=== PATIENT | female | born 1970 | race Caucasian/White ===

== ENCOUNTER 2016-05-04 11:01 | Emergency (ER) | payer MEDICAID ==
[~2016-05-04] VITALS: Ht 175.3 cm; Wt 130.2 kg
[2016-05-04 11:58] LABS: Basophils # (auto) 0 uL; Basophils % (auto) 0.4 % (0.0-2.0); DEFINITIVE VIEW TRANSMISSION; Eosinophils # (auto) 0.2 uL; Eosinophils % (auto) 2.6 % (0.0-7.0); Hematocrit 42.7 % (36.0-46.0); Hemoglobin 13.6 g/dL (12.2-16.2); Lymphocytes # (auto) 2.4 uL; Lymphocytes % (auto) 28.5 % (10.0-50.0); Mean Corpuscular Hemoglobin 25.6 pg (28.0-32.0); Mean Corpuscular Hgb Conc. 31.9 g/dL (32.0-36.0); Mean Corpuscular Volume 80.5 fL (80.0-100.0); Mean Platelet Volume 8.5 fL (7.4-10.4); Monocytes # (auto) 0.5 uL; Monocytes % (auto) 6.2 % (0.0-12.0); Neutrophils # (auto) 5.3 uL; Neutrophils % (auto) 62.3 % (37.0-80.0); Platelet Count (auto) 332 10^3/uL (140-450); White Blood Cell 8.6 10^3/uL (4.4-10.8)
[2016-05-04 12:09] LABS: Albumin 3.3 g/dL (3.4-5.0); BUN/Creatinine Ratio 23.2; Bilirubin, Total 0.2 mg/dL (0.2-1.0); Calcium 9.3 mg/dL (8.5-10.1); Potassium 3.9 mmol/L (3.5-5.1); Total Protein 8.3 g/dL (6.4-8.2)
[2016-05-04] MEDS ORDERED: HYDROmorphone HCL 2 MG/ML VL IV ONE (13:45)
[2016-05-04] MEDS ORDERED: ONDANSETRON HCL 4 MG/2 ML VIAL IV ONE (13:45)
[2016-05-04 14:02] LABS: Urine RBC None Seen /hpf (0 - 4)
[2016-05-04 14:23] VITALS: BP 145/96
[2016-05-04 14:45] LABS: Urine Bilirubin Negative (Negative); Urine Blood Negative /uL (Negative); Urine Color Yellow (Yellow); Urine Glucose Normal (Normal); Urine Ketone Negative (Negative); Urine Mucus FEW (None Seen); Urine Nitrite Negative (Negative); Urine Squamous Epithelial Cell MANY /hpf (<5); Urine Urobilinogen Normal (Negative); Urine pH 5.5 (5.0-8.0)
== END 2016-05-04 14:32 | disposition left against medical advice (07) ==
LOC: ER 11:10
DX: G89.4 Chronic pain syndrome (principal); E46 Unspecified protein-calorie malnutrition; E66.01 Morbid (severe) obesity due to excess calories; Z68.41 Body mass index [BMI] 40.0-44.9, adult; Z88.9 Allergy status to unspecified drugs, medicaments and biological substances; Z53.29 Procedure and treatment not carried out because of patient's decision for other reasons; Z72.89 Other problems related to lifestyle
CPT/HCPCS: 36415; 80053; 81001; 84702; 85025; 85049; 96374; 96375; 99284; G0434; J1170; J2405

== ENCOUNTER 2016-09-25 00:15 | Emergency (ER) | payer MEDICAID ==
[~2016-09-25] VITALS: Ht 175.3 cm; Wt 131.2 kg
[2016-09-25 01:09] LABS: Basophils # (auto) 0.1 uL; Basophils % (auto) 0.8 % (0.0-2.0); DEFINITIVE VIEW TRANSMISSION; Eosinophils # (auto) 0.3 uL; Eosinophils % (auto) 3.4 % (0.0-7.0); Hematocrit 39.2 % (36.0-46.0); Hemoglobin 12.7 g/dL (12.2-16.2); Lymphocytes # (auto) 2.2 uL; Lymphocytes % (auto) 24.8 % (10.0-50.0); Mean Corpuscular Hemoglobin 26.3 pg (28.0-32.0); Mean Corpuscular Hgb Conc. 32.5 g/dL (32.0-36.0); Mean Corpuscular Volume 81.1 fL (80.0-100.0); Mean Platelet Volume 8.2 fL (7.4-10.4); Monocytes # (auto) 0.7 uL; Monocytes % (auto) 7.7 % (0.0-12.0); Neutrophils # (auto) 5.5 uL; Neutrophils % (auto) 63.3 % (37.0-80.0); Platelet Count (auto) 385 10^3/uL (140-450); Red Cell Distribution Width 14.8 % (11.6-16.0); White Blood Cell 8.8 10^3/uL (4.4-10.8)
[2016-09-25 01:26] LABS: Albumin 2.7 g/dL (3.4-5.0); BUN/Creatinine Ratio 17.6; Calcium 9.3 mg/dL (8.5-10.1); Potassium 3.9 mmol/L (3.5-5.1)
[2016-09-25 01:32] LABS: Bilirubin, Total 0.3 mg/dL (0.2-1.0); Total Protein 8.1 g/dL (6.4-8.2)
[2016-09-25] MEDS ORDERED: NALBUPHINE HCL 10 MG/1ml INJECTION IV ONE (02:45)
[2016-09-25] MEDS ORDERED: SODIUM CHLORIDE 0.9% 1,000 ML IV ONE (02:45)
[2016-09-25] MEDS ORDERED: CLINDAMYCIN 900MG IV 50 ML IV ONE (02:45)
[2016-09-25 03:08] LABS: Allen Test Yes; Base Excess -2.3 mmol/L (-2.0-2.0); Blood 02Sat 95.3 % (96-100); Blood COHb 2.3 % (0.5-1.5); Blood MetHb 0.2 % (0.0-1.5); HCO3 21.3 mmol/L (22-26.0); HHb 4.6 % (0.0-5.0); MODE ROOM AIR; O2Hb 92.9 % (94.0-97.0); PCO2 33.1 mmHg (35.0-45.0); PCO2(T) 33.1 mmHg (35.0-45.0); PO2 83.5 mmHg (80.0-100.0); PO2(T) 83.5 mmHg (80.0-100.0); Sample Type Arterial; pH 7.427 (7.350-7.450)
[2016-09-25] MEDS ORDERED: LORazepam 2MG/ML-1ML VIAL ONE (03:43)
[2016-09-25] MEDS ORDERED: diphenhdrAMINE HCL 50 MG/1 ML VL ONE (03:43)
[2016-09-25] MEDS ORDERED: ONDANSETRON HCL 4 MG/2 ML VIAL ONE (03:43)
[2016-09-25] MEDS ORDERED: LORazepam 2MG/ML-1ML VIAL IV ONE (03:45)
[2016-09-25] MEDS ORDERED: diphenhdrAMINE HCL 50 MG/1 ML VL IV ONE (03:45)
[2016-09-25] MEDS ORDERED: ONDANSETRON HCL 4 MG/2 ML VIAL IV ONE (04:00)
[2016-09-25 05:01] VITALS: BP 133/71
[2016-09-25 05:03] LABS: Urine Bilirubin Negative (Negative); Urine Blood Negative /uL (Negative); Urine Ca Oxalate Crystal MANY (None Seen); Urine Color Yellow (Yellow); Urine Glucose Normal (Normal); Urine Ketone Negative (Negative); Urine Mucus FEW (None Seen); Urine Nitrite Negative (Negative); Urine RBC 6 /hpf (0 - 4); Urine Squamous Epithelial Cell FEW /hpf (<5); Urine pH 5.5 (5.0-8.0)
[2016-09-25 05:17] LABS: REFLEX LACTIC ACID YES OR NO YES
== END 2016-09-25 06:00 | disposition home or self-care (01) ==
LOC: ER 00:17
DX: L03.115 Cellulitis of right lower limb (principal); F12.10 Cannabis abuse, uncomplicated; F15.10 Other stimulant abuse, uncomplicated; F11.10 Opioid abuse, uncomplicated; F17.210 Nicotine dependence, cigarettes, uncomplicated; F19.10 Other psychoactive substance abuse, uncomplicated; E66.01 Morbid (severe) obesity due to excess calories; Z68.41 Body mass index [BMI] 40.0-44.9, adult; Z88.8 Allergy status to other drugs, medicaments and biological substances; Z88.6 Allergy status to analgesic agent; Z59.0 Homelessness
CPT/HCPCS: 36415; 36600; 71010; 80053; 80307; 81001; 82805; 83605; 85025; 87040; 87077; 87186; 87205; 93005; 96365; 96366; 96375; 99285; J1200; J2060; J2300; J2405; J3490

== ENCOUNTER 2018-01-22 11:27 | Emergency (ER) | payer MEDICAID ==
[~2018-01-22] VITALS: Ht 177.8 cm; Wt 120.2 kg
[2018-01-22 12:55] LABS: Urine Bacteria NONE SEEN /hpf (None Seen); Urine Blood Negative /uL (Negative); Urine Mucus FEW (None Seen); Urine Specific Gravity 1.025 (1.001-1.035); Urine WBC 3 /hpf (0 - 5)
[2018-01-22 13:12] LABS: Alcohol, Urine < 3.0 mg/dL (0-5); Amphetamine Screen, Urine POSITIVE (NEGATIVE); Barbiturate Scree,Urine NEGATIVE (NEGATIVE); Benzodiazephine Screen, Urine NEGATIVE (NEGATIVE); Cannabinoid Screen, Urine NEGATIVE (NEGATIVE); Cocaine Screen, Urine NEGATIVE (NEGATIVE); Opiate Scree,Urine POSITIVE (NEGATIVE); Phencyclidine Screen, Urine NEGATIVE (NEGATIVE)
[2018-01-22 13:27] LABS: Basophils # (auto) 0.1 uL; Basophils % (auto) 0.7 % (0.0-2.0); Eosinophils # (auto) 0.2 uL; Eosinophils % (auto) 3.1 % (0.0-7.0); Hematocrit 40.6 % (36.0-46.0); Hemoglobin 13.1 g/dL (12.2-16.2); Lymphocytes # (auto) 2.3 uL; Lymphocytes % (auto) 31.8 % (10.0-50.0); Mean Corpuscular Hemoglobin 27.2 pg (28.0-32.0); Mean Corpuscular Hgb Conc. 32.4 g/dL (32.0-36.0); Mean Corpuscular Volume 84.1 fL (80.0-100.0); Monocytes # (auto) 0.7 uL; Monocytes % (auto) 9.4 % (0.0-12.0); Neutrophils # (auto) 3.9 uL; Nucleated Red Blood Cells % 0.1 %; Platelet Count (auto) 273 10^3/uL (140-450); Red Blood Cells 4.82 10^6/uL (4.0-5.20); Red Cell Distribution Width 16.3 % (11.8-14.3); White Blood Cell 7.1 10^3/uL (4.4-10.8)
[2018-01-22 13:38] VITALS: BP 119/76
[2018-01-22 13:50] LABS: Anion Gap 3 (5-15); Blood Urea Nitrogen 15 mg/dL (7-18); Calcium 8.7 mg/dL (8.5-10.1); Carbon Dioxide 28 mmol/L (21-32); Chloride 104 mmol/L (98-107); Glucose 116 mg/dL (74-106); Magnesium 2.2 mg/dL (1.6-2.6); Potassium 4.1 mmol/L (3.5-5.1); Sodium 135 mmol/L (136-145)
[2018-01-22 13:51] LABS: Alanine Aminotransferase 27 U/L (13-56); Aspartate Aminotransferase 25 U/L (15-37); BUN/Creatinine Ratio 19.7; GFR African American 105 mL/min; GFR Non-African American 87 mL/min
[2018-01-22 13:56] LABS: Alkaline Phosphatase 86 U/L (45-117); Bilirubin, Total 0.1 mg/dL (0.2-1.0); Total Protein 8.3 g/dL (6.4-8.2)
[2018-01-22] MEDS ORDERED: methylPREDNISolone SOD SUCC 125 MG/2 ML VL IV ONE (14:15)
[2018-01-22] MEDS ORDERED: HYDROcodone-ACET 10/325MG TAB PO ONE (15:45)
== END 2018-01-22 15:37 | disposition home or self-care (01) ==
LOC: ER 11:27
DX: F15.10 Other stimulant abuse, uncomplicated (principal); J44.9 Chronic obstructive pulmonary disease, unspecified; F17.210 Nicotine dependence, cigarettes, uncomplicated; Z90.49 Acquired absence of other specified parts of digestive tract; Z90.710 Acquired absence of both cervix and uterus; Z88.6 Allergy status to analgesic agent; Z88.8 Allergy status to other drugs, medicaments and biological substances
CPT/HCPCS: 36415; 80053; 80307; 81001; 83735; 83880; 84484; 85025; 93005; 93970; 94761; 99285; J2930

== ENCOUNTER 2020-11-10 11:42 | Inpatient (IN) | payer MEDICAID ==
[~2020-11-10] VITALS: Ht 167.6 cm; Wt 147.6 kg
[2020-11-10] MEDS ORDERED: SODIUM CHLORIDE 0.9% 1,000 ML IV ONE ×3 (12:00→16:45)
[2020-11-10] MEDS ORDERED: NALOXONE HCL 1MG/ML 2ML SYRINGE IV ONE (12:30)
[2020-11-10] MEDS ORDERED: ACETAMINOPHEN 500 MG TAB PO ONE (13:15)
[2020-11-10 14:17] LABS: Basophils # (auto) 0.1 10 ^3/uL (0-0.2); Basophils % (auto) 0.4 % (0.0-2.0); Eosinophils # (auto) 0 10 ^3/uL (0-0.8); Eosinophils % (auto) 0.1 % (0.0-7.0); Monocytes # (auto) 0.9 10 ^3/uL (0-1.3); Red Cell Distribution Width 17.7 % (11.8-14.3)
[2020-11-10 14:18] LABS: Hematocrit 34.8 % (36.0-46.0); Hemoglobin 11.3 g/dL (12.2-16.2); Lymphocytes # (auto) 0.8 10 ^3/uL (0.4-5.4); Mean Corpuscular Hgb Conc. 32.5 g/dL (32.0-36.0); Monocytes % (auto) 5.7 % (0.0-12.0); Neutrophils # (auto) 14.3 10 ^3/uL (1.6-8.6); Neutrophils % (auto) 88.8 % (37.0-80.0); Nucleated Red Blood Cells % 0.1 %; Red Blood Cells 4.52 10^6/uL (4.0-5.20); White Blood Cell 16.1 10^3/uL (4.4-10.8)
[2020-11-10 14:35] LABS: Alanine Aminotransferase 12 U/L (13-56); Albumin 2.6 g/dL (3.4-5.0); Anion Gap 5 (5-15); Aspartate Aminotransferase 14 U/L (15-37); Blood Urea Nitrogen 11 mg/dL (7-18); Calcium 8.4 mg/dL (8.5-10.1); Carbon Dioxide 25 mmol/L (21-32); Chloride 107 mmol/L (98-107); GFR African American 83 mL/min; GFR Non-African American 69 mL/min; Glucose 136 mg/dL (74-106); Potassium 3.4 mmol/L (3.5-5.1); Sodium 137 mmol/L (136-145)
[2020-11-10 14:38] LABS: Lactic Acid w/Reflex 2.7 mmol/L (0.4-2.0)
[2020-11-10 14:40] LABS: Alkaline Phosphatase 84 U/L (45-117); Bilirubin, Total 0.5 mg/dL (0.2-1.0); Total Protein 7.9 g/dL (6.4-8.2)
[2020-11-10] MEDS ORDERED: cefTRIAXone 1GM/50ML D5W 50 ML IV ONE (14:45)
[2020-11-10 15:26] LABS: Urine Amorphous Crystal FEW /hpf (None Seen); Urine Bacteria MOD /hpf (None Seen); Urine Blood Negative /uL (Negative); Urine Mucus FEW (None Seen); Urine Specific Gravity 1.011 (1.001-1.035); Urine WBC 149 /hpf (0 - 5); Urine WBC Clumps PRESENT /hpf (None Seen)
[2020-11-10 15:47] LABS: Alcohol, Urine < 3.0 mg/dL (0-10); Amphetamine Screen, Urine POSITIVE (NEGATIVE); Barbiturate Scree,Urine NEGATIVE (NEGATIVE); Benzodiazephine Screen, Urine NEGATIVE (NEGATIVE); Cannabinoid Screen, Urine NEGATIVE (NEGATIVE); Cocaine Screen, Urine NEGATIVE (NEGATIVE); Opiate Scree,Urine POSITIVE (NEGATIVE); Phencyclidine Screen, Urine NEGATIVE (NEGATIVE)
[2020-11-10] MEDS ORDERED: VANCOMYCIN 1GM/250ML 250 ML IV ONE (16:45)
[2020-11-10] MEDS ORDERED: ACETAMINOPHEN 325 MG TAB PO PRN (16:45)
[2020-11-10] MEDS ORDERED: HYDROcodone-ACET 5/325MG TAB PO PRN (16:45)
[2020-11-10] MEDS ORDERED: MORPHINE SULF INJ 2 MG/ML SYRINGE 1ML IV PRN (16:45)
[2020-11-10] MEDS ORDERED: NITROGLYCERIN 0.4 MG SL TAB SL PRN (16:45)
[2020-11-10] MEDS ORDERED: POTASSIUM EFFERVESENT TAB 25 MEQ PO ONE (18:30)
[2020-11-10 22:00] VITALS: BP 106/71
[2020-11-10] MEDS: MORPHINE SULF INJ 2 MG/ML SYRINGE 1ML IV PRN (22:09)
[2020-11-10 23:59] LABS: Hemoglobin 10.3 g/dL (12.2-16.2); Mean Corpuscular Volume 76.3 fL (80.0-100.0)
[2020-11-11 00:11] LABS: Hematocrit 31.2 % (36.0-46.0); Mean Corpuscular Hemoglobin 25.1 pg (28.0-32.0); Mean Corpuscular Hgb Conc. 32.9 g/dL (32.0-36.0); Red Blood Cells 4.08 10^6/uL (4.0-5.20); Red Cell Distribution Width 18.6 % (11.8-14.3)
[2020-11-11 00:15] LABS: Basophils % (manual) 0 (0.0-2.0); Blast Cells 0; Eosinophils % (manual) 0 (0-7); Metamyelocytes % 0; Myelocytes % 0; Promyelocytes % 0; Reactive Lymphocytes 0
[2020-11-11 01:55] LABS: Band Neutrophils % (manual) 25; Lymphocytes % (manual) 6 (10.0-50.0); Monocytes % (manual) 11 (0-12)
[2020-11-11] MEDS: MORPHINE SULF INJ 2 MG/ML SYRINGE 1ML IV PRN (04:24)
[2020-11-11] MEDS ORDERED: VANCOMYCIN 1GM/250ML 250 ML IV ONE (04:30)
[2020-11-11] MEDS ORDERED: VANCOMYCIN PER PHARMACY 0 MG IV SCH ×2 (04:30)
[2020-11-11 05:00] VITALS: BP 106/59
[2020-11-11 07:39] LABS: Basophils # (auto) 0.1 10 ^3/uL (0-0.2); Basophils % (auto) 0.3 % (0.0-2.0); Eosinophils # (auto) 0 10 ^3/uL (0-0.8); Hemoglobin 10.7 g/dL (12.2-16.2); Monocytes # (auto) 1.1 10 ^3/uL (0-1.3); Monocytes % (auto) 5.1 % (0.0-12.0)
[2020-11-11 07:41] LABS: Eosinophils % (auto) 0.1 % (0.0-7.0); Hematocrit 32.6 % (36.0-46.0); Lymphocytes # (auto) 1.2 10 ^3/uL (0.4-5.4); Lymphocytes % (auto) 5.7 % (10.0-50.0); Mean Corpuscular Hemoglobin 24.9 pg (28.0-32.0); Mean Corpuscular Hgb Conc. 32.9 g/dL (32.0-36.0); Mean Corpuscular Volume 75.6 fL (80.0-100.0); Neutrophils # (auto) 18.8 10 ^3/uL (1.6-8.6); Neutrophils % (auto) 88.8 % (37.0-80.0); Red Blood Cells 4.31 10^6/uL (4.0-5.20); Red Cell Distribution Width 18.8 % (11.8-14.3); White Blood Cell 21.1 10^3/uL (4.4-10.8)
[2020-11-11 08:02] LABS: Potassium 3.2 mmol/L (3.5-5.1)
[2020-11-11 08:12] LABS: Albumin 2.2 g/dL (3.4-5.0); BUN/Creatinine Ratio 13.2; Bilirubin, Total 0.4 mg/dL (0.2-1.0); Calcium 8.4 mg/dL (8.5-10.1); Magnesium 1.9 mg/dL (1.6-2.6); Total Protein 7.8 g/dL (6.4-8.2)
[2020-11-11 09:00] VITALS: BP 124/67
[2020-11-11] MEDS: cefTRIAXone 1GM/50ML D5W 50 ML IV SCH (11:33)
[2020-11-11] MEDS: HYDROcodone-ACET 5/325MG TAB PO PRN ×2 (11:34→20:00)
[2020-11-11 12:54] VITALS: BP 126/65
[2020-11-11] MEDS: VANCOMYCIN 1GM/250ML 250 ML IV SCH ×2 (13:54→22:08)
[2020-11-11 17:00] VITALS: BP 111/60
[2020-11-11] MEDS ORDERED: ONDANSETRON HCL 4 MG/2 ML VIAL IV PRN (20:15)
[2020-11-11 22:00] VITALS: BP 129/88
[2020-11-12 05:00] VITALS: BP 101/70
[2020-11-12 06:51] LABS: Basophils # (auto) 0 10 ^3/uL (0-0.2); Basophils % (auto) 0.3 % (0.0-2.0)
[2020-11-12 06:53] LABS: Eosinophils # (auto) 0.2 10 ^3/uL (0-0.8); Eosinophils % (auto) 1.2 % (0.0-7.0); Hematocrit 30.9 % (36.0-46.0); Hemoglobin 10.2 g/dL (12.2-16.2); Lymphocytes # (auto) 1.3 10 ^3/uL (0.4-5.4); Lymphocytes % (auto) 10.8 % (10.0-50.0); Mean Corpuscular Hgb Conc. 33.2 g/dL (32.0-36.0); Mean Corpuscular Volume 75.3 fL (80.0-100.0); Monocytes % (auto) 8.7 % (0.0-12.0); Neutrophils # (auto) 9.5 10 ^3/uL (1.6-8.6); Red Blood Cells 4.11 10^6/uL (4.0-5.20); Red Cell Distribution Width 18.5 % (11.8-14.3); White Blood Cell 12.1 10^3/uL (4.4-10.8)
[2020-11-12] MEDS: VANCOMYCIN 1GM/250ML 250 ML IV SCH (07:12)
[2020-11-12 07:19] LABS: BUN/Creatinine Ratio 14.9; Calcium 8.5 mg/dL (8.5-10.1); Potassium 3.1 mmol/L (3.5-5.1)
[2020-11-12 09:00] VITALS: BP 127/76
[2020-11-12] MEDS ORDERED: VANCOMYCIN 1GM/250ML 250 ML IV SCH (09:00)
[2020-11-12] MEDS: HYDROcodone-ACET 5/325MG TAB PO PRN ×3 (09:48→23:15)
[2020-11-12] MEDS: cefTRIAXone 1GM/50ML D5W 50 ML IV SCH (10:30)
[2020-11-12 12:35] VITALS: BP 111/54
[2020-11-12] MEDS ORDERED: PENICILLIN G POTASSIUM 4,000,000 UNITS in D5W 5% 50 ML IV SCH (13:30)
[2020-11-12] MEDS: CLINDAMYCIN 600MG IV 50 ML IV SCH ×2 (15:56→23:15)
[2020-11-12] MEDS: PENICILLIN G POTASSIUM 4,000,000 UNITS in D5W 5% 50 ML IV SCH ×2 (16:50→20:52)
[2020-11-12 17:00] VITALS: BP_SYST 135; BP_SYST 145; BP_DIAS 75; BP_DIAS 81
[2020-11-12 22:00] VITALS: BP 115/78
[2020-11-13] MEDS: PENICILLIN G POTASSIUM 4,000,000 UNITS in D5W 5% 50 ML IV SCH ×7 (00:30→17:30)
[2020-11-13 05:00] VITALS: BP 118/73
[2020-11-13] MEDS: CLINDAMYCIN 600MG IV 50 ML IV SCH ×4 (06:45→21:51)
[2020-11-13] MEDS: HYDROcodone-ACET 5/325MG TAB PO PRN ×2 (06:47→17:30)
[2020-11-13 09:00] VITALS: BP 125/72
[2020-11-13] MEDS ORDERED: TEMAZEPAM 15 MG CAP PO PRN (12:15)
[2020-11-13 13:00] VITALS: BP 129/73
[2020-11-13 17:00] VITALS: BP 113/67
[2020-11-13] MEDS: clonazePAM 0.5 MG TAB PO PRN (17:30)
[2020-11-13 22:00] VITALS: BP 130/83
[2020-11-14] MEDS: PENICILLIN G POTASSIUM 4,000,000 UNITS in D5W 5% 50 ML IV SCH ×6 (00:12→21:00)
[2020-11-14 05:00] VITALS: BP 112/65
[2020-11-14] MEDS: clonazePAM 0.5 MG TAB PO PRN ×2 (06:20→23:10)
[2020-11-14] MEDS: CLINDAMYCIN 600MG IV 50 ML IV SCH ×3 (06:20→23:00)
[2020-11-14] MEDS: HYDROcodone-ACET 5/325MG TAB PO PRN ×3 (06:21→23:11)
[2020-11-14 09:00] VITALS: BP 120/64
[2020-11-14 13:00] VITALS: BP 141/86
[2020-11-14 17:00] VITALS: BP 127/78
[2020-11-14 20:00] VITALS: BP 110/63
[2020-11-14 22:00] VITALS: BP 114/67
[2020-11-15] MEDS: PENICILLIN G POTASSIUM 4,000,000 UNITS in D5W 5% 50 ML IV SCH ×4 (01:00→12:00)
[2020-11-15 05:00] VITALS: BP 135/67
[2020-11-15] MEDS: CLINDAMYCIN 600MG IV 50 ML IV SCH ×2 (05:57→06:27)
[2020-11-15 09:00] VITALS: BP 143/87
[2020-11-15] MEDS: HYDROcodone-ACET 5/325MG TAB PO PRN (09:16)
[2020-11-15] MEDS ORDERED: ENOXAPARIN SOD 40 MG/0.4 ML SYRINGE SC SCH (10:00)
[2020-11-15 10:15] LABS: Basophils # (auto) 0 10 ^3/uL (0-0.2); Eosinophils # (auto) 0.3 10 ^3/uL (0-0.8); Eosinophils % (auto) 2.9 % (0.0-7.0); Lymphocytes # (auto) 2.3 10 ^3/uL (0.4-5.4); Lymphocytes % (auto) 25.3 % (10.0-50.0); Monocytes # (auto) 0.8 10 ^3/uL (0-1.3); Monocytes % (auto) 8.4 % (0.0-12.0)
[2020-11-15 10:18] LABS: Basophils % (auto) 0.5 % (0.0-2.0); Hematocrit 33.1 % (36.0-46.0); Hemoglobin 10.7 g/dL (12.2-16.2); Mean Corpuscular Hemoglobin 24.7 pg (28.0-32.0); Mean Corpuscular Hgb Conc. 32.3 g/dL (32.0-36.0); Mean Corpuscular Volume 76.5 fL (80.0-100.0); Neutrophils # (auto) 5.6 10 ^3/uL (1.6-8.6); Neutrophils % (auto) 62.9 % (37.0-80.0); Red Blood Cells 4.32 10^6/uL (4.0-5.20); White Blood Cell 8.9 10^3/uL (4.4-10.8)
[2020-11-15 10:31] LABS: BUN/Creatinine Ratio 13.5; Calcium 8.8 mg/dL (8.5-10.1); Potassium 4.3 mmol/L (3.5-5.1)
== END 2020-11-15 13:30 | disposition home or self-care (01) | DRG 720 ==
LOC: EDBD 11:42 → ER 11:42 → TELE 16:41 → TELE-WESTW 21:20
PROVIDERS: ADMIT Internal Medicine; ATTEND Internal Medicine
PROC: 05HB33Z Insertion of Infusion Device into Right Basilic Vein, Percutaneous Approach (ICD-10-PCS; principal; 2020-11-12)
PROC: B54MZZA Ultrasonography of Right Upper Extremity Veins, Guidance (ICD-10-PCS; 2020-11-12)
DX: A40.0 Sepsis due to streptococcus, group A (principal); D69.59 Other secondary thrombocytopenia; E66.01 Morbid (severe) obesity due to excess calories; G62.9 Polyneuropathy, unspecified; E44.1 Mild protein-calorie malnutrition; Z68.43 Body mass index [BMI] 50.0-59.9, adult; N30.01 Acute cystitis with hematuria; I10 Essential (primary) hypertension; J44.9 Chronic obstructive pulmonary disease, unspecified; F17.210 Nicotine dependence, cigarettes, uncomplicated; L03.116 Cellulitis of left lower limb; F11.10 Opioid abuse, uncomplicated; F41.9 Anxiety disorder, unspecified; F51.04 Psychophysiologic insomnia; E87.6 Hypokalemia; Z20.822 Contact with and (suspected) exposure to COVID-19; Z88.6 Allergy status to analgesic agent; Z88.8 Allergy status to other drugs, medicaments and biological substances; F14.90 Cocaine use, unspecified, uncomplicated; M17.0 Bilateral primary osteoarthritis of knee; M71.22 Synovial cyst of popliteal space [Baker], left knee; Z90.710 Acquired absence of both cervix and uterus; Z91.14 Patient's other noncompliance with medication regimen; F19.10 Other psychoactive substance abuse, uncomplicated; Z71.51 Drug abuse counseling and surveillance of drug abuser
CPT/HCPCS: 36415; 71045; 73701; 80048; 80053; 80202; 80307; 81001; 82565; 83605; 83735; 84484; 85007; 85025; 85027; 86703; 86850; 86900; 86901; 87040; 87077; 87186; 87426; 93005; 93306; 93970; 96361; 96365; 96367; G0378; J0696; J2405; J3490; J7060

== ENCOUNTER 2020-11-21 22:20 | Emergency (ER) | payer MEDICAID ==
[~2020-11-21] VITALS: Ht 175.3 cm; Wt 131.5 kg
[2020-11-21 22:41] VITALS: BP 129/85
[2020-11-21 23:29] LABS: Basophils # (auto) 0.1 10 ^3/uL (0-0.2); Eosinophils # (auto) 0.3 10 ^3/uL (0-0.8); Hemoglobin 11.9 g/dL (12.2-16.2); Monocytes # (auto) 0.7 10 ^3/uL (0-1.3); Neutrophils # (auto) 6.7 10 ^3/uL (1.6-8.6); Nucleated Red Blood Cells % 0.1 %; Red Cell Distribution Width 19.7 % (11.8-14.3); White Blood Cell 10.7 10^3/uL (4.4-10.8)
[2020-11-21 23:31] LABS: Basophils % (auto) 0.5 % (0.0-2.0); Hematocrit 36.8 % (36.0-46.0); Lymphocytes % (auto) 27.8 % (10.0-50.0); Mean Corpuscular Hemoglobin 25.3 pg (28.0-32.0); Mean Corpuscular Hgb Conc. 32.3 g/dL (32.0-36.0); Mean Corpuscular Volume 78.1 fL (80.0-100.0); Monocytes % (auto) 6.6 % (0.0-12.0); Neutrophils % (auto) 62.1 % (37.0-80.0); Red Blood Cells 4.71 10^6/uL (4.0-5.20)
[2020-11-21 23:48] LABS: Albumin 2.6 g/dL (3.4-5.0); Calcium 8.7 mg/dL (8.5-10.1); Potassium 3.5 mmol/L (3.5-5.1)
[2020-11-21 23:50] LABS: Lactic Acid w/Reflex 2.1 mmol/L (0.4-2.0)
[2020-11-21 23:51] LABS: BUN/Creatinine Ratio 12.5
[2020-11-21 23:53] LABS: Bilirubin, Total 0.2 mg/dL (0.2-1.0); Total Protein 8.7 g/dL (6.4-8.2)
== END 2020-11-22 03:19 | disposition left against medical advice (07) ==
LOC: ER 22:22
DX: L03.116 Cellulitis of left lower limb (principal); F17.210 Nicotine dependence, cigarettes, uncomplicated; J44.9 Chronic obstructive pulmonary disease, unspecified; I10 Essential (primary) hypertension; Z88.6 Allergy status to analgesic agent; Z88.8 Allergy status to other drugs, medicaments and biological substances; Z90.89 Acquired absence of other organs; Z90.710 Acquired absence of both cervix and uterus
CPT/HCPCS: 36415; 80053; 83605; 85025

== ENCOUNTER 2023-11-08 00:06 | Inpatient (IN) | payer MEDICAID ==
[~2023-11-08] VITALS: Ht 162.6 cm; Wt 154.3 kg
[2023-11-08] MEDS: MORPHINE SULFATE 4 MG/ML SYR/VIAL IM ONE (01:46)
[2023-11-08 01:50] LABS: Basophils # (auto) 0.1 10 ^3/uL (0-0.2); Basophils % (auto) 0.2 % (0.0-2.0); Eosinophils # (auto) 0 10 ^3/uL (0-0.8); Hematocrit 38.5 % (36.0-46.0); Hemoglobin 12.6 g/dL (12.2-16.2); Lymphocytes % (auto) 4.2 % (10.0-50.0); Mean Corpuscular Hemoglobin 27.3 pg (28.0-32.0); Mean Corpuscular Hgb Conc. 32.8 g/dL (32.0-36.0); Mean Corpuscular Volume 83.2 fL (80.0-100.0); Monocytes # (auto) 1.1 10 ^3/uL (0-1.3); Monocytes % (auto) 4.9 % (0.0-12.0); Neutrophils # (auto) 21.1 10 ^3/uL (1.6-8.6); Neutrophils % (auto) 90.7 % (37.0-80.0); Red Blood Cells 4.63 10^6/uL (4.0-5.20); White Blood Cell 23.3 10^3/uL (4.4-10.8)
[2023-11-08 02:10] LABS: Alanine Aminotransferase 15 U/L (7-40); Alkaline Phosphatase 105 U/L (46-116); Anion Gap 9 (5-15); Aspartate Aminotransferase 18 U/L (13-40); BUN/Creatinine Ratio 17.2 (10.0-20.0); Blood Urea Nitrogen 23 mg/dL (9-23); Calcium 9.8 mg/dL (8.7-10.4); Carbon Dioxide 21 mmol/L (20-30); Chloride 104 mmol/L (98-107); Glucose 147 mg/dL (74-106); Potassium 4.1 mmol/L (3.5-5.1); Sodium 134 mmol/L (136-145)
[2023-11-08 02:11] LABS: Bilirubin, Total 0.5 mg/dL (0.2-1.0); Total Protein 7.8 g/dL (5.7-8.2)
[2023-11-08] MEDS: CYCLOBENZAPRINE HCL 10 MG TAB PO ONE (02:52)
[2023-11-08] MEDS: HYDROmorphone HCL 2 MG/ML VL/or syr IV ONE ×2 (02:52→18:42)
[2023-11-08] MEDS: PIPERACILLIN-TAZO 4.5GM 100 ML IV ONE (03:03)
[2023-11-08 03:23] VITALS: PULSE 88; RESP 17; O2SAT 98
[2023-11-08] MEDS: LORazepam 2MG/ML-1ML VIAL IV ONE (03:48)
[2023-11-08] MEDS ORDERED: ALBUTEROL SULF 2.5 MG/0.5ML(0.5%) NEB SOLN NEB PRN (06:00)
[2023-11-08] MEDS ORDERED: ACETAMINOPHEN 325 MG TAB PO PRN (06:00)
[2023-11-08] MEDS ORDERED: NITROGLYCERIN 0.4 MG SL TAB SL PRN (06:00)
[2023-11-08] MEDS: CLINDAMYCIN 600MG IV 50 ML IV SCH (06:51)
[2023-11-08] MEDS: MORPHINE SULFATE INJ 2 MG/ml SYRG IV PRN (06:51)
[2023-11-08] MEDS: ONDANSETRON HCL 4 MG/2 ML VIAL IV PRN (06:52)
[2023-11-08 08:00] VITALS: PULSE 117; RESP 17; O2SAT 94
[2023-11-08] MEDS: ENOXAPARIN SOD 40 MG/0.4 ML SYRINGE SC SCH (10:32)
[2023-11-08 11:07] VITALS: BP 95/56; PULSE 120; RESP 24; O2SAT 99
[2023-11-08] MEDS ORDERED: HYDR-4798 PO (12:14)
[2023-11-08] MEDS ORDERED: HYDR4TAB90 PO (12:14)
[2023-11-08] MEDS: HYDROcodone-ACET 5/325MG TAB PO PRN (12:37)
[2023-11-08] MEDS ORDERED: VANCOMYCIN PER PHARMACY 0 MG IV SCH (13:00)
[2023-11-08] MEDS ORDERED: SODIUM CHLORIDE 0.9% 1,000 ML IV SCH (14:00)
[2023-11-08] MEDS: IOHEXOL 350 MG/ML 100ML IJ ONE ×2 (14:39→14:44)
[2023-11-08] MEDS: AMPICILLIN & SULBACTAM SODIUM 3 GM in SODIUM CHL 0.9% 100 ML IV SCH (15:24)
[2023-11-08] MEDS: VANCOMYCIN 1GM/200ML 200 ML IV ONE (15:28)
[2023-11-08 16:18] LABS: Erythrocyte Sedimentation Rate 78 mm/hr (0-20)
[2023-11-08] MEDS: FUROSEMIDE 20 MG/2 ML VIAL IV ONE (19:07)
[2023-11-08 20:16] VITALS: O2SAT 93
[2023-11-09] MEDS: VANCOMYCIN 1GM/200ML 200 ML IV SCH (03:57)
[2023-11-09 05:04] LABS: Basophils # (auto) 0.1 10 ^3/uL (0-0.2); Basophils % (auto) 0.4 % (0.0-2.0); Eosinophils # (auto) 0 10 ^3/uL (0-0.8); Eosinophils % (auto) 0.1 % (0.0-7.0); Hematocrit 33.9 % (36.0-46.0); Hemoglobin 11.1 g/dL (12.2-16.2); Lymphocytes # (auto) 1.1 10 ^3/uL (0.4-5.4); Lymphocytes % (auto) 6.6 % (10.0-50.0); Mean Corpuscular Hemoglobin 26.8 pg (28.0-32.0); Mean Corpuscular Hgb Conc. 32.7 g/dL (32.0-36.0); Mean Corpuscular Volume 81.9 fL (80.0-100.0); Monocytes # (auto) 1.4 10 ^3/uL (0-1.3); Neutrophils # (auto) 14.4 10 ^3/uL (1.6-8.6); Neutrophils % (auto) 84.9 % (37.0-80.0); Red Blood Cells 4.13 10^6/uL (4.0-5.20); Red Cell Distribution Width 19.2 % (11.8-14.3)
[2023-11-09 05:12] LABS: Chloride 103 mmol/L (98-107); Potassium 3.7 mmol/L (3.5-5.1); Sodium 136 mmol/L (136-145)
[2023-11-09 05:13] LABS: Anion Gap 9 (5-15); Carbon Dioxide 24 mmol/L (20-30)
[2023-11-09 05:14] LABS: Calcium 9.1 mg/dL (8.7-10.4)
[2023-11-09 05:18] LABS: BUN/Creatinine Ratio 14.8 (10.0-20.0); Blood Urea Nitrogen 16 mg/dL (9-23); Glucose 122 mg/dL (74-106)
[2023-11-09 07:41] LABS: Urine Bacteria FEW /hpf (None Seen); Urine Blood 1+ /uL (Negative); Urine Clarity Clear (Clear); Urine Color Light-Yellow (Yellow); Urine Protein, UAD 1+ (Negative); Urine Specific Gravity 1.021 (1.001-1.035); Urine Urobilinogen Normal (Negative); Urine WBC 19 /hpf (0 - 5)
[2023-11-09 09:00] VITALS: PULSE 76; RESP 16; O2SAT 94
[2023-11-09 12:00] VITALS: O2SAT 95
[2023-11-09] MEDS: OXYCODONE W/ ACETAMINOPHEN 5/325MG TABLET PO PRN (12:01)
[2023-11-09] MEDS ORDERED: ALBUTEROL SULF 2.5 MG/0.5ML(0.5%) NEB SOLN NEB PRN (13:30)
[2023-11-09] MEDS ORDERED: GABAPENTIN 300 MG CAP PO SCH (14:00)
[2023-11-09 19:30] VITALS: PULSE 84; RESP 24; O2SAT 95
[2023-11-09] MEDS: HYDROcodone-ACET 10/325MG TAB PO PRN (19:50)
[2023-11-09 19:59] VITALS: PULSE 80; RESP 20; O2SAT 94
[2023-11-09] MEDS: IPRATROPIUM BROM 0.5 MG/2.5ML INH SOL NEB SCH (19:59)
[2023-11-09] MEDS: ALBUTEROL SULF 2.5 MG/0.5ML(0.5%) NEB SOLN NEB SCH (19:59)
[2023-11-09 20:03] VITALS: PULSE 100; RESP 20; O2SAT 96
[2023-11-09] MEDS: ALPRAZolam 0.5 MG TAB PO PRN (21:16)
[2023-11-09] MEDS: MORPHINE SULFATE INJ 2 MG/ml SYRG IV PRN (22:26)
[2023-11-09] MEDS: KETOROLAC TROMETH 30 MG/ML 1ML VIAL IV ONE (22:27)
[2023-11-09] MEDS ORDERED: MORPHINE SULFATE INJ 2 MG/ml SYRG IV PRN (22:30)
[2023-11-10] VITALS (18 sets, daily range): BP systolic 132–159; BP diastolic 70–91; PULSE 76–96; RESP 17–21; TEMP 96.6–98.6; O2SAT 92–98
[2023-11-10] MEDS: TEMAZEPAM 15 MG CAP PO PRN (00:11)
[2023-11-10] MEDS: MORPHINE SULFATE INJ 2 MG/ml SYRG IV PRN (02:20)
[2023-11-10] MEDS: LACTULOSE 20Gm/30ML SOLN PO PRN (04:07)
[2023-11-10] MEDS: POTASSIUM CHL 20 Meq TABLET PO SCH (09:14)
[2023-11-10] MEDS: FUROSEMIDE 40 MG/4 ML VIAL IV SCH (09:14)
[2023-11-10] MEDS: ENALAPRIL MALEATE 2.5 MG TAB PO SCH (09:15)
[2023-11-10] MEDS: DOCUSATE SOD 100 MG CAP PO SCH (21:42)
[2023-11-11] VITALS (13 sets, daily range): BP systolic 144–164; BP diastolic 76–98; PULSE 78–100; RESP 16–20; TEMP 36.3; O2SAT 91–98
[2023-11-11] MEDS ORDERED: LEVO500T91 PO (11:58)
== END 2023-11-11 13:10 | disposition home or self-care (01) | DRG 720 ==
LOC: EDBD 00:06 → ER 00:06 → OVERFLOW 05:59 → TELE-EAST 11-09 05:59 → DOU IN ICU 11-09 17:38 → TELE 11-09 18:24 → TELE-EAST 11-09 23:23
PROVIDERS: ADMIT Nurse Practitioner; ATTEND Internal Medicine
DX: A40.0 Sepsis due to streptococcus, group A (principal); J96.01 Acute respiratory failure with hypoxia; A40.1 Sepsis due to streptococcus, group B; R65.20 Severe sepsis without septic shock; I13.0 Hypertensive heart and chronic kidney disease with heart failure and stage 1 through stage 4 chronic kidney disease, or unspecified chronic kidney disease; G93.41 Metabolic encephalopathy; I50.20 Unspecified systolic (congestive) heart failure; N17.9 Acute kidney failure, unspecified; D64.9 Anemia, unspecified; E66.01 Morbid (severe) obesity due to excess calories; I25.10 Atherosclerotic heart disease of native coronary artery without angina pectoris; J44.9 Chronic obstructive pulmonary disease, unspecified; L03.116 Cellulitis of left lower limb; N18.31 Chronic kidney disease, stage 3a; N39.0 Urinary tract infection, site not specified; F17.210 Nicotine dependence, cigarettes, uncomplicated; G89.29 Other chronic pain; Z90.710 Acquired absence of both cervix and uterus; Z88.6 Allergy status to analgesic agent; Z68.43 Body mass index [BMI] 50.0-59.9, adult
CPT/HCPCS: 36415; 36600; 70450; 71045; 71275; 73700; 80048; 80053; 81001; 82805; 83605; 83880; 84484; 84550; 84702; 85025; 85652; 86141; 87040; 87077; 87081; 87186; 87205; 93306; 93971; 94640; 96365; 96366; 96367; 96372; 96375; 96376; G0378; J1885; J2405; J2543; J3490

== ENCOUNTER 2024-12-05 16:28 | Inpatient (IN) | payer MEDICAID, OTHER ==
[~2024-12-05] VITALS: Ht 167.6 cm; Wt 155.2 kg
[~2024-12-05 16:28] MED LIST: HYDR-4798 PO; HYDR4TAB90 PO; LEVO500T91 PO
--- NOTE | 2024-12-05 16:45 | ED.PDOC ---
HPI Comments 54-year-old female with a history of congestive heart failure, and severe neuropathy was brought in via emergency services with a chief complaint of nonradiating left-sided chest pain, with the associated shortness a breath and bilateral leg edema. Patient states that her chest pain has been onset for the past two days, with no alleviating factors but has progressively gotten worse prompting the visit to the emergency department. Patient is noted to has been O2 saturation 94% on room air. But no notable signs of distress noted. Patient denies any nausea, vomiting, diarrhea, abdominal pain, headache, blurry vision, dysuria, hematuria, or any other associated symptoms, modifiers at this time. Chief Complaint: Chest Pain Time Seen by MD: 16:41 Primary Care Provider: UNKNOWN NAME AT THIS TIME Reviewed Notes: Nurses Notes, [facility] Notes, Medications, Allergies Allergies: Coded Allergies: Gabapentin (Verified Allergy, Unknown, 05/04/16) Ibuprofen (Verified Allergy, Unknown, 09/25/16) Home Meds Active Scripts Levofloxacin Hemihydrate (LEVAQUIN 500 MG) 500 Mg Tab, 1 TAB PO DAILY, #14 TAB Prov:ANNEMARIE GILLIS MD 11/11/23 Reported Medications Hydromorphone Hcl (Dilaudid) 4 Mg Tab, 4 MG PO BID, TAB 11/08/23 Hydrocodone-Acetaminophen (Hydrocodone Bitartrate/AC 10-325 mg) 1 Tab Tab, 1 TAB PO Q4HPRN PRN for PAIN SCALE 1 THRU 6, TAB 11/08/23 Information Source: Patient, Emergency Med Personnel Mode of Arrival: EMS Severity: Moderate Timing: Days Duration: Since onset, Days Prehospital treatment: 12 Lead EKG Location: Chest (L) Radiation: No Radiation Quality: Pressure Onset: At Rest Cardiac Risk Factors: None PE Risk Factors: None History of: None Modifying Factors: Exertion Associated Signs and Symptoms: SOB, Calf Swelling Past Medical History PAST MEDICAL HISTORY: COPD, HTN Surgical History: Appendectomy, Hysterectomy SITE ADMINISTRATOR History: No Pertinent SITE ADMINISTRATOR History Family History Family History: Reviewed,noncontributory to illness Social History Smoker: Cigarettes, Less Than 1 Pack/Day Alcohol: Occasionally Drugs: Heroin Lives In: Home Constitutional: denies: chills, diaphoresis, fatigue, fever, malaise, sweats, weakness, others EENTM: denies: blurred vision, double vision, ear bleeding, ear discharge, ear drainage, ear pain, ear ringing, eye pain, eye redness, hearing loss, mouth pain, mouth swelling, nasal discharge, nose bleeding, nose congestion, nose pain, photophobia, tearing, throat pain, throat swelling, voice changes, others Respiratory: reports: SOB at rest, shortness of breath; denies: cough, hemoptysis, orthopnea, SOB with excertion, stridor, wheezing, others Cardiovascular: reports: chest pain; denies: dizzy spells, diaphoresis, Dyspnea on exertion, edema, irregular heart beat, left arm pain, lightheadedness, palpitations, PND, syncope, others Gastrointestinal: denies: abdomen distended, abdominal pain, blood streaked bowels, constipated, diarrhea, dysphagia, difficulty swallowing, hematemesis, melena, nausea, poor appetite, poor fluid intake, rectal bleeding, rectal pain, vomiting, others Genitourinary: denies: abnormal vagina bleeding, burning, dyspareunia, dysuria, flank pain, frequency, hematuria, incontinence, pain, , vagina discharge, urgency, others Neurological: denies: dizziness, fainting, headache, left sided numbness, left sided weakness, numbness, paresthesia, pre-existing deficit, right sided numbness, right sided weakness, seizure, speech problems, tingling, tremors, weakness, others Musculoskeletal: reports: others (Bilateral leg edema); denies: back pain, gout, joint pain, joint swelling, muscle pain, muscle stiffness, neck pain Integumetry: denies: bruises, change in color, change in hair/nails, dryness, laceration, lesions, lumps, rash, wounds, others Allergic/Immunocompromised: denies: Difficulty Healing, Frequent Infections, Hives, Itching, others Hematologic/Lymphatic: denies: anemia, blood clots, easy bleeding, easy bruisi ng, swollen glands, others Endocrine: denies: excessive hunger, excessive sweating, excessive thirst, exce ssive urination, flushing, intolerance to cold, intolerance to heat, unexplained weight gain, unexplained weight loss, others Psychiatric: denies: anxiety, bipolar disorder, depression, hopeless, panic disorder, schizophrenia, sleepless, suicidal, others All Other Systems: Reviewed and Negative Physical Exam General Appearance: Moderate Distress, Normal HEENT: Normal ENT Inspection, Pharynx Normal, TMs Normal Neck: Full Range of Motion, Non-Tender, Normal, Normal Inspection Respiratory: Chest Non-Tender, Lungs Clear, No Accessory Muscle Use, No Respiratory Distress, Normal Breath Sounds Cardiovascular: No Edema, No JVD, No Murmur, No Gallop, Normal Peripheral Pulses, Regular Rate/Rhythm Breast Exam: Deferred Gastrointestinal: No Organomegaly, Non Tender, No Pulsatile Mass, Normal Bowel Sounds, Soft Genitalia: Deferred Pelvic: Deferred Rectal: Deferred Extremities: No calf tenderness, Normal capillary refill, Pedal edema, Swelling (Bilateral lower extremity) Musculoskeletal : Apperance: Normal Neurologic: Alert, top lift scourer II-XII nml as Tested, No Motor Deficits, Normal Affect, Normal Mood, No Sensory Deficits Cerebellar Function: Normal Reflexes: Normal Skin: Dry, Normal Color, Warm, Other (Bilateral lower extremity redness) Peripheral Pulses: 3+ Radial (R), 3+ Radial (L) Lymphatic: No Adenopathy EKG EKG : Pulse Rate (adult): 95 [place]: Normal Cardiac Rhythm: NSR Block: None Hypertrophy: None ST: Normal Was a procedure done? Was a procedure done?: No CP Differential Dx Differential Diagnosis: A-fib, A-Flutter, Angina, Anxiety / Panic Attack, Atrial Dysrhythmia, Electrolyte Disorder, Heart Failure Differential Diagnosis: CHF, HTN Encephalopathy Differential Diagnosis: Angina, Chest Wall Pain, Cholelithiasis, Esophageal reflux/spasm, Gastritis, Pericarditis, Pulmonary Embolus X-Ray, Labs, Meds, VS Vital Signs Date Time Temp Pulse Resp B/P (MAP) Pulse Ox O2 Delivery O2 Flow Rate FiO2 12/05/24 16:45 95 12/05/24 16:35 98.2 18 18 128/72 94 98.2 Patient alert. Complaining of chest pain. She is obese. Vitals stable. Continues to smoke cigarettes. Bilateral lower extremity swelling with redness. Possible cellulitis. Possible pneumonitis. Counseled patient on effects of smoking cigarettes for 15 minutes. Explained to the patient. Continue monitoring. Time of 1ST Reevaluation: 17:11 Reevaluation 1ST: Unchanged Patient Education/Counseling: Diagnosis, Treatment, Need For Follow Up Family Education/Counseling: No Family Present SEPSIS Sepsis Screen Date sepsis recognized/suspect: Dec 05, 2024 Time Sepsis recognized/suspect: 1638 Recent Procedure: No On Antibiotic Therapy: No Respiratory Rate >20: No Heart Rate >90: No Temp<36 C (96.8 F) or >38.3 C: No SBP <90 or MAP <65 mmHG: No New Acute Mental Status Change: No Is the patient on CPAP, BIPAP,: No Physician Orders Complete Blood Count (12/05/24 16:38) B-Type Natriuretic Peptide (12/05/24 16:38) Urinalysis (12/05/24 16:38) Troponin-I Hs (12/05/24 16:38) Troponin-I Hs (12/05/24 17:38) Troponin-I Hs (12/05/24 19:38) Basic Metabolic Panel (12/05/24 16:38) Chest Portable (12/05/24 16:51) Methylprednisolone Sod Succ (Solu Medrol (12/05/24 17:00) Ceftriaxone Ivpb Rocephin (12/05/24 17:00) Clindamycin Ivpb Cleocin (12/05/24 17:00) Vital Signs Date Time Temp Pulse Resp B/P (MAP) Pulse Ox O2 Delivery O2 Flow Rate FiO2 12/05/24 16:45 95 12/05/24 16:35 98.2 18 18 128/72 94 98.2 Departure 1 Departure Time of Disposition: 16:50 Impression: Primary Impression: Cellulitis of left lower extremity Additional Impressions: Pneumonitis Chest pain of unknown etiology Disposition: ADMITTED INPATIENT Admit to: Med Surg Condition: Guarded Critical Care Note Critical Care Time?: No Stability Stability form required: No Heart Score Heart Score: Heart Score Response (Comments) Value History Moderate Suspicious 1 EKG Normal 0 Age 45-64 1 Risk Factors 1 or 2 risk factors 1 Troponin Normal limit 0 Total 3 I personally scribed for BRITTANY SOTOMAYOR MD ([email or web address]) on 12/05/24 at 16:44. Electronically submitted by Martir Sparks ([email or web address]). I personally scribed for BRITTANY SOTOMAYOR MD ([email or web address]) on 12/05/24 at 16:45. Electronically submitted by Martir Sparks ([email or web address]). BRITTANY SOTOMAYOR MD Dec 05, 2024 16:44
[2024-12-05 17:43] LABS: Hemoglobin 12.5 g/dL (12.2-16.2); Nucleated Red Blood Cells % 0.1 %
[2024-12-05 17:46] LABS: Hematocrit 39.1 % (36.0-46.0); Mean Corpuscular Hemoglobin 25.8 pg (28.0-32.0); Mean Corpuscular Volume 80.4 fL (80.0-100.0)
[2024-12-05 17:59] LABS: Chloride 105 mmol/L (98-107); Potassium 4.2 mmol/L (3.5-5.1); Sodium 139 mmol/L (136-145)
[2024-12-05 18:00] LABS: Anion Gap 6 (5-15); Calcium 9.9 mg/dL (8.7-10.4); Carbon Dioxide 28 mmol/L (20-31)
[2024-12-05 18:05] LABS: BUN/Creatinine Ratio 19.6 (10.0-20.0); Blood Urea Nitrogen 19 mg/dL (9-23)
--- NOTE | 2024-12-05 18:05 | DVH ---
CHEST RADIOGRAPH Indication: cough Technique: Single frontal view of the chest was obtained COMPARISON: XY CHEST PORTABLE on DOS: 11/10/23, CT CT ANGIO CHEST CONTRAST on DOS: 11/08/23, XY CHEST X RAY 1 VIEW on DOS: 11/08/23, CHEST PORTABLE on DOS: 11/10/20 FINDINGS: Lines and Tubes: None Lungs: Mild interstitial pulmonary edema Pleura: No effusion. No pneumothorax. Cardiomediastinal contours: Unremarkable Bones: Unremarkable IMPRESSION: 1. Mild interstitial pulmonary edema
[2024-12-05 18:06] LABS: Glucose 106 mg/dL (74-106)
[2024-12-06] VITALS (15 sets, daily range): BP systolic 116–147; BP diastolic 79–84; PULSE 87–110; RESP 16–22; TEMP 97.4–97.5; O2SAT 92–98
[2024-12-06] MEDS ORDERED: DOCUSATE SOD 100 MG CAP PO PRN
[2024-12-06] MEDS ORDERED: ACETAMINOPHEN 325 MG TAB PO PRN
[2024-12-06] MEDS ORDERED: MORPHINE SULFATE INJ 2 MG/ml SYRG IV PRN
[2024-12-06] MEDS: PANTOPRAZOLE 40 MG TAB PO ONE
[2024-12-06] MEDS: ceFAZolin 1GM/50ML 50 ML IV SCH (00:30)
[2024-12-06] MEDS: FUROSEMIDE 40 MG/4 ML VIAL IV SCH (00:30)
[2024-12-06 00:44] LABS: Urine Protein, UAD Negative (Negative)
--- NOTE | 2024-12-06 00:47 | DVHHPRES ---
History of Present Illness Resident Creating Document: [facility] RESIDENT History of Present Illness Selena Morales is a 54-year-old female with past medical history of congestive heart failure, hypertension, COPD, severe neuropathy, psoriasis, left leg cellulitis and bipolar mood disorder. The patient was brought to the ED by EMS with the chief complaint of 2 days of left-sided chest pain, 5-6/10, pressure like, progressive, continues, no irradiated, no aggravates or alleviates, associated with shortness a breath, orthopnea and bilateral leg edema. The patient reports increase in swelling of left leg with warmth and erythema for the past week. Today, the chest pain was persistent and exacerbate d 9/10, this prompted her visit to the ED. The patient reports she has been in hospice facility for the last month due to many comorbidities and reports she was released yesterday to home. The patient denies palpitation, lightheaded, headache, blurry vision, dysuria, hematuria, or other symptoms. The patient will be admitted for further evaluation and management. Cardiovascular: CHF, HTN Pulmonary: COPD Psych: Anxiety, Bipolar Dermatology: Cellulitis (On left leg. ), Psoriasis Past Surgical History: Appendectomy, Hysterectomy (Due to cancer (2000), she does not recall thye type) Family History: None Smoke: <1 pack per day ALCOHOL: occassional Drugs: None Lives: with Family Review of Systems Constitutional: No: Fever, Chills, Sweats, Weakness, Malaise, Other Eyes: No: Pain, Vision change, Conjunctivae inflammation, Eyelid inflammation, Other, Redness ENT: No: Ear pain, Ear discharge, Nose pain, Nose discharge, Nose congestion, Mouth pain, Mouth swelling, Throat pain, Throat swelling, Other Respiratory: Shortness of breath, SOB with excertion; No: Cough, Dry, Wheezing, Hemoptysis, Pleuritic Pain, Sputum, Wheezing, Other Cardiovascular: Chest Pain (left sided.); No: Palpitations, Orthopnea, Paroxysmal Noc. Dyspnea, Edema, Lt Headedness, Other Gastrointestinal: No: Nausea, Vomiting, Abdominal Pain, Diarrhea, Constipation, Melena, Hematochezia, Other Genitourinary: No Dysuria, No Frequency, No Incontinence, No Hematuria, No Retention, No Other Musculoskeletal: No: other, neck pain, shoulder pain, arm pain, back pain, hand pain, leg pain, foot pain Skin: Other (Psoriasis) Neurological: No: Weakness, Numbness, Incoordination, Change in speech, Confusion, Seizures, Other Allergies: Coded Allergies: Gabapentin (Verified Allergy, Unknown, 05/04/16) Ibuprofen (Verified Allergy, Unknown, 09/25/16) Medications Current Medications Medications Dose Ordered Sig/Elsa Route Start Time Stop Time Status Last Admin Dose Admin Docusate Sodium 100 mg BIDPRN PRN PO 12/06/24 00:00 Acetaminophen 650 mg Q6HP PRN PO 12/06/24 00:00 Acetaminophen/ Hydrocodone Bitart 1 tab Q4HP PRN PO 12/06/24 00:00 Morphine Sulfate 2 mg Q4HPRN PRN IV 12/06/24 00:00 Enoxaparin Sodium 40 mg DAILY SC 12/06/24 10:00 Exam Vital Signs Vital Signs Date Time Temp Pulse Resp B/P (MAP) Pulse Ox O2 Delivery O2 Flow Rate FiO2 12/06/24 00:03 98.0 100 18 113/62 (79) 93 98.0 General Appearance: Alert, Oriented X3, Cooperative, No acute distress HEENT: Atraumatic, Mucous membr. moist/pink Respiratory: Clear to auscultation, Normal air movement Cardiovascular: Regular rate, Normal S1, Normal S2, No murmurs Abdominal: Normal bowel sounds, Soft, No tenderness, No hepatospenomegaly Extremities: No clubbing, No cyanosis, No edema, Other (Left leg: pitting leg p itting edema, erythema, tender and warmth. Difficult to plapate pulses on left leg to due edema. ) Skin: No significant lesion (Psoriatic plaque on right elbow and left leg. ) Neuro: Normal speech, Normal tone, Other (Bilateral foot neuropathy. ) Psych/Mental Status: Mental status NL, Mood NL Labs/Xrays Labs Test 12/05/24 23:59 12/05/24 18:19 12/05/24 17:25 Range/Units Urine Color Yellow Yellow Urine Clarity Turbid H Clear Urine pH 5.5 5.0-9.0 Urine Specific [place] 1.024 1.001-1.035 Urine Protein Negative Negative Urine Ketones Negative Negative Urine Blood Negative Negative /uL Urine Nitrite Negative Negative Urine Bilirubin Negative Negative Urine Urobilinogen Normal Negative mg/dL Urine Leukocyte Esterase Trace Negative /uL Urine RBC 11 0 - 4 /hpf Urine Microscopic WBC 25 H 0-5 /HPF Urine Squamous Epithelial Cells Few <5 /hpf Urine Calcium Oxalate Crystals Few None Seen Urine Bacteria Few H None Seen /hpf Urine Hyaline Casts Few 0 - 2 /lpf Urine Mucus Few None Seen Urine Glucose Normal Normal mg/dL Troponin I High Sensitivity < 3 L </=34 ng/L White Blood Count 8.1 4.4-10.8 10^3/uL Red Blood Count 4.86 4.0-5.20 10^6/uL Hemoglobin 12.5 12.2-16.2 g/dL Hematocrit 39.1 36.0-46.0 % Mean Corpuscular Volume 80.4 80.0-100.0 fL Mean Corpuscular Hemoglobin 25.8 L 28.0-32.0 pg Mean Corpuscular Hemoglobin Concent 32.1 32.0-36.0 g/dL Red Cell Distribution Width 18.7 H 11.8-14.3 % Platelet Count 272 140-450 10^3/uL Mean Platelet Volume 7.5 6.9-10.8 fL Neutrophils (%) (Auto) 54.8 37.0-80.0 % Lymphocytes (%) (Auto) 31.2 10.0-50.0 % Monocytes (%) (Auto) 11.0 0.0-12.0 % Eosinophils (%) (Auto) 2.2 0.0-7.0 % Basophils (%) (Auto) 0.8 0.0-2.0 % Neutrophils # (Auto) 4.5 1.6-8.6 10 ^3/uL Lymphocytes # (Auto) 2.5 0.4-5.4 10 ^3/uL Monocytes # (Auto) 0.9 0-1.3 10 ^3/uL Eosinophils # (Auto) 0.2 0-0.8 10 ^3/uL Basophils # (Auto) 0.1 0-0.2 10 ^3/uL Nucleated Red Blood Cells 0.1 % Sodium Level 139 136-145 mmol/L Potassium Level 4.2 3.5-5.1 mmol/L Chloride Level 105 98-107 mmol/L Carbon Dioxide Level 28 20-31 mmol/L Anion Gap 6 5-15 Blood Urea Nitrogen 19 9-23 mg/dL Creatinine 0.97 0.550-1.02 mg/dL Glomerular Filtration Rate Calc 69 >90 mL/min BUN/Creatinine Ratio 19.6 10.0-20.0 Serum Glucose 106 74-106 mg/dL Calcium Level 9.9 8.7-10.4 mg/dL B-Type Natriuretic Peptide 10.06 0-100 pg/mL SEPSIS Sepsis Screen Date sepsis recognized/suspect: Dec 05, 2024 Time Sepsis recognized/suspect: 1637 Recent Procedure: No On Antibiotic Therapy: Yes Respiratory Rate >20: No Heart Rate >90: Yes Temp<36 C (96.8 F) or >38.3 C: No SBP <90 or MAP <65 mmHG: No New Acute Mental Status Change: No Is the patient on CPAP, BIPAP,: No Physician Orders Chest Portable (12/05/24 16:51) Electrocardigram (12/05/24 17:07) Electrocardigram (12/05/24 18:07) Electrocardigram (12/05/24 20:07) Admit (12/05/24 23:53) Code Status (12/05/24:53) Vital Signs .PER UNIT PROTOCOL (12/05/24 23:53) Review Orders With Adm.Md (12/05/24 23:53) Bedside Commode (12/05/24 23:53) Docusate Sodium Capsule (Colace Capsule) (12/06/24 00:00) Acetaminophen Tablet (Tylenol Tablet) (12/06/24 00:00) Notify Md Of Changes From Base (12/05/24 23:53) Advance Directive (12/05/24 23:53) Patient Condition (12/05/24 23:53) Allergies (12/05/24 23:53) Hydrocodone-Acet 5/325mg Tab ([place] 5/32 (12/06/24 00:00) Drug Screen (12/05/24 23:53) Hemoglobin A1c (12/05/24 23:53) Morphine Sulfate Injection (12/06/24 00:00) Enoxaparin Sodium (Lovenox) (12/06/24 10:00) Notify Of Changes From Base (12/05/24 23:53) Blood Culture (12/05/24 23:53) Vital Signs Date Time Temp Pulse Resp B/P (MAP) Pulse Ox O2 Delivery O2 Flow Rate FiO2 12/06/24 00:03 98.0 100 18 113/62 (79 93 98.0 Laboratory Tests Test 12/05/24 17:25 White Blood Count 8.1 10^3/uL (4.4-10.8) Assessment/Plan Assessment/Plan #Acute chest pain, rule out ACS #Rule out DVT/ PE EKG ECHO Doppler DVT US D-Dimer #Chronic COPD exacerbation Chest Xray Methylprednisolone Albuterol NB Ipratropium NB #Acute on chronic CHF exacerbation BNP ECHO Lasix 40mg BID Strict I&Os Lactic acid #Left leg Cellulitis Cefazolin IV Blood cultures #Peripheral neuropathy Medication reconciliation #Psoriasis Medication reconciliation #Bipolar mood disorder #Anxiety disorder #Obesity Life style modification counselling. #Smoker Smoke cessation counselling. #Essential Hypertension Medication reconciliation Cardiac diet DVT prophylaxis- lovenox 40mg. PUD prophylaxis Protonics. Goals of care discussed with the patient > 35 min. Discussed plan of care with Dr. Julian Code status: Full code PCP: No established yet. Patient will follow up in the discharge clinic. Plan discussed with: Patient, the patient agrees with the admission plan. Plan discussed with: Patient My Orders Orders - [facility] Procedure Category Date Status Time Admit ADMIT 12/05/24 Transmitted 23:53 Code Status CODE 12/05/24 Transmitted 23:53 Vital Signs ANSHU 12/05/24 In Process 23:53 Review Orders With ANSHU 12/05/24 In Process Adm. 23:53 Bedside Commode ANSHU 12/05/24 In Process 23:53 Docusate Sodium PHA 12/06/24 In Process Capsule (Colace 00:00 Acetaminophen Tablet PHA 12/06/24 In Process (Tylenol Tablet) 00:00 Notify Of Changes ANSHU 12/05/24 In Process From Base 23:53 Advance Directive ANSHU 12/05/24 In Process 23:53 Patient Condition ORDERS 12/05/24 Transmitted 23:53 Allergies ANSHU 12/05/24 In Process 23:53 Hydrocodone-Acet PHA 12/06/24 In Process 5/325mg Tab ([place] 00:00 Drug Screen LAB 12/05/24 In Process 23:53 Hemoglobin A1c LAB 12/05/24 Logged 23:53 Morphine Sulfate PHA 12/06/24 In Process Injection 00:00 Enoxaparin Sodium PHA 12/06/24 In Process (Lovenox) 10:00 Notify Of Changes ANSHU 12/05/24 In Process From Base 23:53 Blood Culture FREDDY 12/05/24 Logged 23:53 Date of Service: Dec 06, 2024 Billing Provider: GIUSEPPE JULIAN MD Common Visit Codes: 98952-[id number] INP/OBS CARE (HIGH) Secondary Visit Codes: 60746-[id number] CHNG SMOKING 3-10m, [id number] CARE PLAN 30 MINUTES [facility] RESIDENT Dec 06, 2024 00:47
[2024-12-06 01:41] LABS: Opiate Scree,Urine Neg (NEGATIVE)
[2024-12-06 01:42] LABS: Amphetamine Screen, Urine Pos (NEGATIVE); Barbiturate Scree,Urine Neg (NEGATIVE); Benzodiazephine Screen, Urine Pos (NEGATIVE); Cannabinoid Screen, Urine Neg (NEGATIVE); Cocaine Screen, Urine Neg (NEGATIVE); Phencyclidine Screen, Urine Neg (NEGATIVE)
[2024-12-06 06:19] LABS: Nucleated Red Blood Cells % 0.1 %
[2024-12-06 06:20] LABS: Hematocrit 38.7 % (36.0-46.0); Hemoglobin 12.6 g/dL (12.2-16.2); Mean Corpuscular Hemoglobin 26.1 pg (28.0-32.0); Mean Corpuscular Volume 80.7 fL (80.0-100.0)
[2024-12-06 06:27] LABS: Chloride 103 mmol/L (98-107); Potassium 3.9 mmol/L (3.5-5.1); Sodium 137 mmol/L (136-145)
[2024-12-06 06:28] LABS: Anion Gap 7 (5-15); Carbon Dioxide 27 mmol/L (20-31)
[2024-12-06 06:29] LABS: Calcium 9.5 mg/dL (8.7-10.4)
[2024-12-06 06:34] LABS: BUN/Creatinine Ratio 12.7 (10.0-20.0); Blood Urea Nitrogen 13 mg/dL (9-23)
[2024-12-06 06:35] LABS: Glucose 113 mg/dL (74-106)
[2024-12-06] MEDS: ALBUTEROL SULF 2.5 MG/0.5ML(0.5%) NEB SOLN NEB SCH (07:43)
[2024-12-06] MEDS: IPRATROPIUM BROM 0.5 MG/2.5ML INH SOL NEB PRN (07:43)
[2024-12-06] MEDS: cefTRIAXone 1GM/50ML D5W 50 ML IV ONE (09:51)
[2024-12-06] MEDS: methylPREDNISolone SOD SUCC 125 MG/2 ML VL IV ONE (09:51)
[2024-12-06] MEDS: MORPHINE SULFATE INJ 2 MG/ml SYRG IV PRN (09:52)
--- NOTE | 2024-12-06 10:57 | DVH ---
Bilateral lower extremity venous duplex Clinical History: R/O DVT Comparison: CT LEFT LOWER EXTREMITY W/O CON on DOS: 11/08/23, US LT LOWER DVT on DOS: 11/08/23, BI LOWE R DVT on DOS: 11/12/20 Technique: Duplex Doppler evaluation of the deep venous systems of both lower extremities from the common femora l veins to the popliteal veins including color Doppler and spectral/pulsed waveform analysis was perf ormed. Findings: RIGHT SIDE: The common femoral vein demonstrates appropriate compressibility and waveform variability. There is compressibility/patency of the great saphenous vein at the proximal thigh. The femoral vein demonstrates appropriate compressibility and waveform variability. The deep femoral vein demonstrates appropriate compressibility and waveform variability. The popliteal vein demonstrates appropriate compressibility and waveform variability. There is normal compressibility at the tibioperoneal trunk. LEFT SIDE: The common femoral vein demonstrates appropriate compressibility and waveform variability. There is compressibility/patency of the great saphenous vein at the proximal thigh. The femoral vein demonstrates appropriate compressibility and waveform variability. The deep femoral vein demonstrates appropriate compressibility and waveform variability. The popliteal vein demonstrates appropriate compressibility and waveform variability. There is normal compressibility at the tibioperoneal trunk. Impression: 1. No right or left femoropopliteal venous thrombosis.
[2024-12-06] MEDS: ENOXAPARIN SOD 40 MG/0.4 ML SYRINGE SC SCH ×2 (12:39→21:02)
[2024-12-06] MEDS: CLINDAMYCIN 600MG IV 50 ML IV ONE (12:41)
--- NOTE | 2024-12-06 17:43 | DVHPN2 ---
Subjective I am assuming the care of the patient from today onwards. Patient is here for left lower extremity cellulitis as blood chest pain ruled out NH. Patient is currently denies any chest pain. Changes from previous H/P or p: No Changes Eyes: No Pain, No Vision change, No Conjunctivae inflammation, No Eyelid inflammation, No Other, No Redness ENT: No Ear pain, No Ear discharge, No Nose pain, No Nose discharge, No Nose congestion, No Mouth pain, No Mouth swelling, No Throat pain, No Throat swelling, No Other Cardiovascular: Chest Pain (left sided.); No Palpitations, No Orthopnea, No Paroxysmal Noc. Dyspnea, No Edema, No Lt Headedness, No Other Respiratory: No Cough, No Dry; Shortness of breath, SOB with excertion; No Wheezing, No Hemoptysis, No Pleuritic Pain, No Sputum, No Other Gastrointestinal: No Nausea, No Vomiting, No Abdominal Pain, No Diarrhea, No Constipation, No Melena, No Hematochezia, No Other Genitourinary: No Dysuria, No Frequency, No Incontinence, No Hematuria, No Retention, No Other Musculoskeletal: No other, No neck pain, No shoulder pain, No arm pain, No back pain, No hand pain, No leg pain, No foot pain Skin: Other (Psoriasis) Objective Vitals Vital Signs Date Time Temp Pulse Resp B/P (MAP) Pulse Ox O2 Delivery O2 Flow Rate FiO2 12/06/24 16:53 97.5 110 16 145/84 (104) 95 97.5 12/06/24 15:07 Room Air 0.0 12/06/24 15:07 21 Exam HEENT pupils are reactive Neck is supple CV is S1-S2 regular rate and rhythm Respiratory are clear GI positive bowel sound Extremity left lower extremity cellulitis with a bilateral leg swelling five. 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 Medications Current Medications Medications Dose Ordered Sig/Elsa Route Start Time Stop Time Status Last Admin Dose Admin Docusate Sodium 100 mg BIDPRN PRN PO 12/06/24 00:00 Acetaminophen 650 mg Q6HP PRN PO 12/06/24 00:00 Acetaminophen/ Hydrocodone Bitart 1 tab Q4HP PRN PO 12/06/24 00:00 Enoxaparin Sodium 40 mg DAILY SC 12/06/24 10:00 12/06/24 12:39 40 MG Morphine Sulfate 1 mg Q4HPRN PRN IV 12/06/24 00:30 12/06/24 09:52 1 MG Furosemide 40 mg BIDAC IV 12/06/24 00:30 12/06/24 09:51 40 MG Cefazolin Sodium 50 ml @ 100 mls/hr Q8HR IV 12/06/24 00:30 12/06/24 14:53 100 MLS/HR Albuterol 1.25 mg Q4HR NEB 12/06/24 06:00 12/06/24 15:07 1.25 MG Ipratropium [place] 0.5 mg Q4HPRN PRN NEB 12/06/24 06:00 12/06/24 15:07 0.5 MG Laboratory Results Laboratory Tests 12/06/24 05:29 Chemistry Test 12/06/24 05:29 Calcium Level 9.5 mg/dL (8.7-10.4) Coagulation Test 12/06/24 05:29 D-Dimer, Quantitative 2.32 mg/L FEU (0.0-0.49) H HgA1c, TSH Test 12/06/24 00:51 Hemoglobin A1c 6.3 % A1C (<5.7) H Urinalysis Test 12/05/24 23:59 Urine Color Yellow (Yellow) Urine Clarity Turbid (Clear) H Urine pH 5.5 (5.0-9.0) Urine Specific [place] 1.024 (1.001-1.035) Urine Protein Negative (Negative) Urine Ketones Negative (Negative) Urine Blood Negative /uL (Negative) Urine Nitrite Negative (Negative) Urine Bilirubin Negative (Negative) Urine Urobilinogen Normal mg/dL (Negative) Urine Leukocyte Esterase Trace /uL (Negative) Urine RBC 11 /hpf (0 - 4) Urine Microscopic WBC 25 /HPF (0-5) H Urine Squamous Epithelial Cells Few /hpf (<5) Urine Calcium Oxalate Crystals Few (None Seen) Urine Bacteria Few /hpf (None Seen) H Urine Hyaline Casts Few /lpf (0 - 2) Urine Mucus Few (None Seen) Urine Glucose Normal mg/dL (Normal) Assessment/Plan Assessment/Plan 54-year-old female with a known history of congestive heart failure, COPD, peripheral neuropathy, psoriasis , chronic tobacco use disorder , anxiety disorder, bipolar disorder, morbid obesity classIII who initially presented to the hospital with the chest pain , shortness of breaths as well as bilateral leg swelling and left leg the redness found to have 1. Chest pain rule out NH 2. Acute on chronic congestive heart failure exacerbation unspecified 3. Left leg cellulitis 4. COPD 5. Hypertension 6. Peripheral neuropathy 7. Chronic tobacco use disorder 8. Morbid obesity classIII -continue IV antibiotics, IV diuretics, PT evaluation and treatment, follow up Cardiology recommendations. Plan discussed with: Patient My Orders Orders - SEAN FRAZIER MD Procedure Category Date Status Time Enoxaparin Sodium PHA 12/06/24 Verified (Lovenox) 17:45 Enoxaparin Sodium PHA 12/07/24 Verified (Lovenox) 10:00 Date of Service: Dec 06, 2024 Billing Provider: SEAN FRAZIER MD Common Visit Codes: [id number] INP/OBS CARE(MOD) SEAN FRAZIER MD Dec 06, 2024 17:43
[2024-12-06] MEDS ORDERED: ENOXAPARIN SOD 40 MG/0.4 ML SYRINGE SC ONE (17:45)
[2024-12-06] MEDS: HYDROcodone-ACET 5/325MG TAB PO PRN (23:03)
[2024-12-07] VITALS (8 sets, daily range): BP systolic 130–143; BP diastolic 79–86; PULSE 98–109; RESP 17–22; TEMP 97.9–98; O2SAT 91–99
--- NOTE | 2024-12-07 16:48 | DVHDS2 ---
Discharge Summary Date of Admission Dec 05, 2024 at 23:53 Date of Discharge: Dec 07, 2024 Labs/Diagnostic Data: Laboratory Results Test 12/06/24 05:29 12/06/24 00:51 12/05/24 23:59 12/05/24 18:19 White Blood Count 8.2 10^3/uL (4.4-10.8) Red Blood Count 4.80 10^6/uL (4.0-5.20) Hemoglobin 12.6 g/dL (12.2-16.2) Hematocrit 38.7 % (36.0-46.0) Mean Corpuscular Volume 80.7 fL (80.0-100.0) Mean Corpuscular Hemoglobin 26.1 pg (28.0-32.0) Mean Corpuscular Hemoglobin Concent 32.4 g/dL (32.0-36.0) Red Cell Distribution Width 18.4 % (11.8-14.3) Platelet Count 287 10^3/uL (140-450) Mean Platelet Volume 7.6 fL (6.9-10.8) Neutrophils (%) (Auto) 55.8 % (37.0-80.0) Lymphocytes (%) (Auto) 31.5 % (10.0-50.0) Monocytes (%) (Auto) 9.5 % (0.0-12.0) Eosinophils (%) (Auto) 2.7 % (0.0-7.0) Basophils (%) (Auto) 0.5 % (0.0-2.0) Neutrophils # (Auto) 4.6 10 ^3/uL (1.6-8.6) Lymphocytes # (Auto) 2.6 10 ^3/uL (0.4-5.4) Monocytes # (Auto) 0.8 10 ^3/uL (0-1.3) Eosinophils # (Auto) 0.2 10 ^3/uL (0-0.8) Basophils # (Auto) 0 10 ^3/uL (0-0.2) Nucleated Red Blood Cells 0.1 % D-Dimer, Quantitative 2.32 mg/L FEU (0.0-0.49) Sodium Level 137 mmol/L (136-145) Potassium Level 3.9 mmol/L (3.5-5.1) Chloride Level 103 mmol/L (98-107) Carbon Dioxide Level 27 mmol/L (20-31) Anion Gap 7 (5-15) Blood Urea Nitrogen 13 mg/dL (9-23) Creatinine 1.02 mg/dL (0.550-1.02) Glomerular Filtration Rate Calc 65 mL/min (>90) BUN/Creatinine Ratio 12.7 (10.0-20.0) Serum Glucose 113 mg/dL (74-106) Lactic Acid Level 1.2 mmol/L (0.4-2.0) Calcium Level 9.5 mg/dL (8.7-10.4) Hemoglobin A1c 6.3 % A1C (<5.7) Urine Color Yellow (Yellow) Urine Clarity Turbid (Clear) Urine pH 5.5 (5.0-9.0) Urine Specific [place] 1.024 (1.001-1.035) Urine Protein Negative (Negative) Urine Ketones Negative (Negative) Urine Blood Negative /uL (Negative) Urine Nitrite Negative (Negative) Urine Bilirubin Negative (Negative) Urine Urobilinogen Normal mg/dL (Negative) Urine Leukocyte Esterase Trace /uL (Negative) Urine RBC 11 /hpf (0 - 4) Urine Microscopic WBC 25 /HPF (0-5) Urine Squamous Epithelial Cells Few /hpf (<5) Urine Calcium Oxalate Crystals Few (None Seen) Urine Bacteria Few /hpf (None Seen) Urine Hyaline Casts Few /lpf (0 - 2) Urine Mucus Few (None Seen) Urine Glucose Normal mg/dL (Normal) Urine Opiates Screen Neg (NEGATIVE) Urine Fentanyl Screen Pos (NEGATIVE) Urine Barbiturates Screen Neg (NEGATIVE) Urine Phencyclidine Screen Neg (NEGATIVE) Urine Amphetamines Screen Pos (NEGATIVE) Urine Benzodiazepines Screen Pos (NEGATIVE) Urine Cocaine Screen Neg (NEGATIVE) Urine Cannabinoids Screen Neg (NEGATIVE) Troponin I High Sensitivity < 3 ng/L (</=34) Test 12/05/24 17:25 B-Type Natriuretic Peptide 10.06 pg/mL (0-100) Other Laboratory Tests 12/06/24 05:29 Brief Hx & Hospital Course: 54-year-old female with a known history of congestive heart failure, COPD, peripheral neuropathy, psoriasis , chronic tobacco use disorder , anxiety disorder, bipolar disorder, morbid obesity classIII who initially presented to the hospital with the chest pain , shortness of breaths as well as bilateral leg swelling and left leg the redness found to have left lower extremity cellulitis. Patient also has a known history of chronic congestive heart failure with mild exacerbation. Patient also complaining of chest pain troponins are negative so far. Patient left against medical advice before completion of workup and treatment. Condition at Discharge: Undetermined Final Diagnosis/Problems List 54-year-old female with a known history of congestive heart failure, COPD, peripheral neuropathy, psoriasis , chronic tobacco use disorder , anxiety disorder, bipolar disorder, morbid obesity classIII who initially presented to the hospital with the chest pain , shortness of breaths as well as bilateral leg swelling and left leg the redness found to have 1. Chest pain rule out [place] 2. Acute on chronic congestive heart failure exacerbation unspecified 3. Left leg cellulitis 4. COPD 5. Hypertension 6. Peripheral neuropathy 7. Chronic tobacco use disorder 8. Morbid obesity classIII Discharge Disposition: AMA SNF Discharge Will this Physician continue t: No Discharge Instruct/Medications Scheduled Hydromorphone Hcl (Dilaudid), 4 MG PO BID, (Reported) Levofloxacin Hemihydrate (Levaquin 500 Mg), 1 TAB PO DAILY Scheduled PRN Hydrocodone-Acetaminophen (Hydrocodone Bitartrate/AC 10-325 mg), 1 TAB PO Q4HPRN PRN for PAIN SCALE 1 THRU 6, (Reported) Discharge Statement: "Patient was advised to return to the ER or call 911 if any headaches, dizziness, shortness of breath, chest pain, abdominal pain, bleeding, fevers, or worsening of medical condition. Patient was counseled about treatment plan, medications, possible side effects, patientverbalized understanding. All questions were answered to the best of my ability. This discharge took greater then 30 minutes in planning, reviewing documentation, counseling the patient, and discussing with other team members." ASSESSMENT ASSESSMENT Assessment Date of Service: Dec 07, 2024 Billing Provider: SEAN FRAZIER MD Common Visit Codes: [id number]/[id number] DISCH DAY <30MIN SEAN FRAZIER MD Dec 07, 2024 16:48
--- NOTE | 2024-12-08 08:24 | ECG ---
[facility] Test Date: 2024-12-06 Test Time: 23:44:14 Pat Name: RAGHU ESCAMILLA Department: Room: 0214T A Gender: F Labor Relations Officer: cande : 1970 Requested By: OLESYA GARRETT Order Number: [id number] Reading MD: Davian Boo Measurements Intervals [place] Rate: 107 P: 65 [place]: 153 QRS: 58 QRSD: 101 T: 44 QT: 367 QTc: 490 Interpretive Statements Sinus tachycardia Borderline prolonged QT interval Electronically Signed On 12-09-2024 13:22:10 PDT by Davian Boo Please click the below link to view image of tracing.
--- NOTE | 2024-12-08 08:51 | ECG ---
[facility] Test Date: 2024-12-05 Test Time: 16:30:48 Pat Name: RAGHU ESCAMILLA Department: [facility] ED Patient ID: [facility]-[id number] Room: 0214T A Gender: F Journeyman Pipefitter: mak : 1970 Requested By: BRITTANY SOTOMAYOR Order Number: [id number] Reading MD: Davian Boo Measurements Intervals [place] Rate: 95 P: 56 [place]: 144 QRS: 49 QRSD: 81 T: 56 QT: 348 QTc: 438 Interpretive Statements Sinus rhythm Low voltage, precordial leads Electronically Signed On 12-09-2024 14:32:35 PDT by Davian Boo Please click the below link to view image of tracing.
== END 2024-12-07 11:54 | disposition left against medical advice (07) | DRG 194 ==
LOC: EDUNIT# 16:28 → ER 16:28 → EDBD 16:28 → OVERFLOW 23:53 → TELE-CENTR 12-06 00:01 → CENTRAL 12-06 14:08 → TELE-CENTR 12-07 01:38
PROVIDERS: ATTEND Emergency Medicine
DX: I11.0 Hypertensive heart disease with heart failure (principal); L03.116 Cellulitis of left lower limb; E66.01 Morbid (severe) obesity due to excess calories; G62.9 Polyneuropathy, unspecified; Z53.29 Procedure and treatment not carried out because of patient's decision for other reasons; J44.9 Chronic obstructive pulmonary disease, unspecified; F17.210 Nicotine dependence, cigarettes, uncomplicated; I50.33 Acute on chronic diastolic (congestive) heart failure; J98.4 Other disorders of lung; F31.9 Bipolar disorder, unspecified; F41.9 Anxiety disorder, unspecified; E66.9 Obesity, unspecified; Z88.6 Allergy status to analgesic agent; Z88.8 Allergy status to other drugs, medicaments and biological substances; Z79.899 Other long term (current) drug therapy; Z90.710 Acquired absence of both cervix and uterus; Z68.43 Body mass index [BMI] 50.0-59.9, adult
CPT/HCPCS: 36415; 71045; 80048; 80307; 81001; 83036; 83605; 83880; 84484; 85025; 85379; 87040; 93005; 93970; 94640; G0378; J3490

== ENCOUNTER 2025-01-28 20:09 | Inpatient (IN) | payer OTHER ==
[~2025-01-28] VITALS: Ht 172.7 cm; Wt 160.2 kg
[2025-01-28] MEDS ORDERED: SODIUM CHLORIDE 0.9% 1,000 ML IV ONE (21:30)
[2025-01-28] MEDS ORDERED: VANCOMYCIN PER PHARMACY 0 MG IV SCH (21:30)
--- NOTE | 2025-01-28 21:32 | ED.PDOC ---
History of Present Illness(SKN HPI Comments 54Y F presented to the ER with a chief complaint of persistent left lower extremity draining wound and pain for the past 3 months. Patient was seen in this facility in the month of November, says that her lower left extremity has been worsening since then, and has been draining purulent substance, says that her left lower extremity feels numb, and she is on gabapentin and scheduled Dilaudid for that. Reports fever and chills. Denies nausea/vomiting/abdominal pain/constipation or diarrhea. She has not been able to bear weight and is wheelchair-bound. Past medical history:hypertension, neuropathic pain, congestive heart failure, COPD, severe neuropathy, psoriasis, persistent left leg cellulitis Home medications: Losartan 20 mg, gabapentin, Dilaudid, Salters Social history: Smokes cigarettes, last used methamphetamine 2022, denies drinking Patient seen and examined. She is tachycardic, with bilateral wheezing and crackles heard. Patient is warm, feeble pulses in the left lower extremity, purulent draining wound seen in the anterolateral surface of the timmons. Chief Complaint: Lower Extremity Time Seen by MD: 20:27 Primary Care Provider: UNKNOWN NAME AT THIS TIME History of Present Illness: Nurses Notes Allergies: Coded Allergies: Gabapentin (Verified Allergy, Unknown, 05/04/16) Ibuprofen (Verified Allergy, Unknown, 09/25/16) Home Meds Active Scripts Levofloxacin Hemihydrate (LEVAQUIN 500 MG) 500 Mg Tab, 1 TAB PO DAILY, #14 TAB Prov:ANNEMARIE GILLIS MD 11/11/23 Reported Medications Hydromorphone Hcl (Dilaudid) 4 Mg Tab, 4 MG PO BID, TAB 11/08/23 Hydrocodone-Acetaminophen (Hydrocodone Bitartrate/AC 10-325 mg) 1 Tab Tab, 1 TAB PO Q4HPRN PRN for PAIN SCALE 1 THRU 6, TAB 11/08/23 Information Source: Patient Mode of Arrival: Wheelchair Past Medical History PAST MEDICAL HISTORY: COPD, HTN Surgical History: Appendectomy, Hysterectomy 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 Pertinent PARA MACHINE OPERATOR History Family History Family History: Reviewed,noncontributory to illness Social History Smoker: Cigarettes, Less Than 1 Pack/Day Alcohol: Occasionally Drugs: Heroin Lives In: Home Constitutional: reports: chills, fever, weakness EENTM: denies: blurred vision, double vision, ear bleeding, ear discharge, ear drainage, ear pain, ear ringing, eye pain, eye redness, hearing loss, mouth pain, mouth swelling, nasal discharge, nose bleeding, nose congestion, nose pain, photophobia, tearing, throat pain, throat swelling, voice changes, others Respiratory: reports: SOB at rest, wheezing Cardiovascular: reports: edema Gastrointestinal: denies: abdomen distended, abdominal pain, blood streaked bowels, constipated, diarrhea, dysphagia, difficulty swallowing, hematemesis, melena, nausea, poor appetite, poor fluid intake, rectal bleeding, rectal pain, vomiting, others Genitourinary: denies: abnormal vagina bleeding, burning, dyspareunia, dysuria, flank pain, frequency, hematuria, incontinence, pain, , vagina discharge, urgency, others Neurological: denies: dizziness, fainting, headache, left sided numbness, left sided weakness, numbness, paresthesia, pre-existing deficit, right sided numbness, right sided weakness, seizure, speech problems, tingling, tremors, weakness, others Musculoskeletal: reports: joint pain, joint swelling Integumetry: reports: wounds Allergic/Immunocompromised: denies: Difficulty Healing, Frequent Infections, Hives, Itching, others Hematologic/Lymphatic: denies: anemia, blood clots, easy bleeding, easy bruising, swollen glands, others Endocrine: denies: excessive hunger, excessive sweating, excessive thirst, excessive urination, flushing, intolerance to cold, intolerance to heat, unexplained weight gain, unexplained weight loss, others Psychiatric: denies: anxiety, bipolar disorder, depression, hopeless, panic disorder, schizophrenia, sleepless, suicidal, others Physical Exam General Appearance: No Apparent Distress, Normal HEENT: NOT DONE Neck: NOT DONE Respiratory: Decreased Breath Sounds, Wheezing, Other (Bilateral wheezing and crackles) Cardiovascular: Tachycardia, Other (Bilateral 3+ pitting edema) Breast Exam: Deferred Gastrointestinal: No Organomegaly, Non Tender, No Pulsatile Mass, Normal Bowel Sounds, Soft Genitalia: Deferred Pelvic: Deferred Rectal: Deferred Extremities: Other (Left lower extremity has draining purulent wound on the anterolateral timmons, tender to palpation, feeble pulses, swollen and erythematous, feet are cold) Neurologic: Alert, No Motor Deficits Cerebellar Function: NOT DONE Reflexes: NOT DONE Skin: Warm, Wounds Lymphatic: NOT DONE Was a procedure done? Was a procedure done?: No Differential Diagnosis (INTG) Differential Diagnosis: Cellulitis Differential Diagnosis: Abscess, Osteomyelitis Differential Diagnosis: Hematoma Abscess: Bacteremia, Cellulitis, Gas Gangrene X-Ray, Labs, Meds, VS Vital Signs Date Time Temp Pulse Resp B/P (MAP) Pulse Ox O2 Delivery O2 Flow Rate FiO2 01/28/25 22:19 18 94 Room Air* 0 21 01/28/25 20:18 98.4 127 20 171/102 96 98.4 Lab Test 01/28/25 23:27 01/28/25 22:01 01/28/25 20:23 Range/Units Lactic Acid Level Pending White Blood Count 8.9 4.4-10.8 10^3/uL Red Blood Count 4.55 4.0-5.20 10^6/uL Hemoglobin 11.9 L 12.2-16.2 g/dL Hematocrit 36.1 36.0-46.0 % Mean Corpuscular Volume 79.3 L 80.0-100.0 fL Mean Corpuscular Hemoglobin 26.2 L 28.0-32.0 pg Mean Corpuscular Hemoglobin Concent 33.0 32.0-36.0 g/dL Red Cell Distribution Width 18.0 H 11.8-14.3 % Platelet Count 327 140-450 10^3/uL Mean Platelet Volume 7.3 6.9-10.8 fL Neutrophils (%) (Auto) 60.9 37.0-80.0 % Lymphocytes (%) (Auto) 28.2 10.0-50.0 % Monocytes (%) (Auto) 8.0 0.0-12.0 % Eosinophils (%) (Auto) 2.4 0.0-7.0 % Basophils (%) (Auto) 0.5 0.0-2.0 % Neutrophils # (Auto) 5.4 1.6-8.6 10 ^3/uL Lymphocytes # (Auto) 2.5 0.4-5.4 10 ^3/uL Monocytes # (Auto) 0.7 0-1.3 10 ^3/uL Eosinophils # (Auto) 0.2 0-0.8 10 ^3/uL Basophils # (Auto) 0 0-0.2 10 ^3/uL Nucleated Red Blood Cells 0.1 % Erythrocyte Sedimentation Rate 66 H 0-20 mm/hr Sodium Level 140 136-145 mmol/L Potassium Level 4.0 3.5-5.1 mmol/L Chloride Level 102 98-107 mmol/L Carbon Dioxide Level 31 20-31 mmol/L Anion Gap 7 5-15 Blood Urea Nitrogen 16 9-23 mg/dL Creatinine 1.04 H 0.550-1.02 mg/dL Glomerular Filtration Rate Calc 64 >90 mL/min BUN/Creatinine Ratio 15.4 10.0-20.0 Serum Glucose 112 H 74-106 mg/dL Calcium Level 9.4 8.7-10.4 mg/dL Total Bilirubin 0.2 0.2-1.0 mg/dL Aspartate Amino Transferase (AST) 17 13-40 U/L Alanine Aminotransferase (ALT) 18 7-40 U/L Alkaline Phosphatase 97 46-116 U/L Troponin I High Sensitivity < 3 L </=34 ng/L C-Reactive Protein High Sensitivity 3.15 H <1.0 mg/dL B-Type Natriuretic Peptide 14.42 0-100 pg/mL Total Protein 8.2 5.7-8.2 g/dL Albumin 4.2 3.2-4.8 g/dL POC Glucose 128 H 70-106 mg/dl Current Medications Medications (Trade) Dose Ordered Sig/Elsa Route Start Time Stop Time Status Last Admin Ipratropium [place] (Atrovent Medneb) 0.5 mg ONCE ONCE NEB 01/28/25 22:15 01/28/25 22:27 DC 01/28/25 22:19 Levalbuterol HCl (Xopenex Medneb) 1.25 mg ONCE ONCE NEB 01/28/25 00:00 01/28/25 22:10 DC 01/28/25 22:19 X-Ray, Labs, Meds, VS Comment CT left lower extremity shows Severe diffuse skin thickening and soft tissue edema presumably related to cellulitis elbow lymphatic obstruction or venous insufficiency could have a similar appearance. No organized abscess. No osteomyelitis. Severe degenerative changes at the left knee with joint effusion. Patient refused lower extremity Doppler at this time Images Reviewed?: Images reviewed and evaluated by me Time of 1ST Reevaluation: 00:00 Reevaluation 1ST: Unchanged Consultation: PCP Patient Education/Counseling: Diagnosis, Treatment Family Education/Counseling: No Family Present SEPSIS Sepsis Screen Date sepsis recognized/suspect: Jan 28, 2025 Time Sepsis recognized/suspect: 2021 Recent Procedure: No On Antibiotic Therapy: No Respiratory Rate >20: No Heart Rate >90: Yes Temp<36 C (96.8 F) or >38.3 C: No SBP <90 or MAP <65 mmHG: No New Acute Mental Status Change: No Is the patient on CPAP, BIPAP,: No Physician Orders Blood Culture (01/28/25 21:27) Initiate Sepsis Protocol (01/28/25 ) Vancomycin Per Pharmacy (01/28/25 21:30) Left Lower Extremity W/O Con (01/28/25 21:30) Urinalysis (01/28/25 21:35) Drug Screen (01/28/25 21:35) Cleanse Wound With Ns (01/28/25 21:49) Cleanse Wound W/ Sterile Gauze (01/28/25 21:49) Chest Xray 1 View (01/28/25 22:07) Vancomycin 1gm/250ml Kit (01/28/25 22:15) Lactic Acid W/ Reflex Order (01/28/25 22:48) Bilat Lower Dvt (01/29/25 08:00) Vital Signs Date Time Temp Pulse Resp B/P (MAP) Pulse Ox O2 Delivery O2 Flow Rate FiO2 01/28/25 22:19 18 94 Room Air* 0 21 01/28/25 20:18 98.4 127 20 171/102 96 98.4 Laboratory Tests Test 01/28/25 22:01 01/28/25 23:27 White Blood Count 8.9 10^3/uL (4.4-10.8) Lactic Acid Level Pending Medications Medications Dose Ordered Sig/Elsa Route Start Time Stop Time Status Last Admin Dose Admin Ipratropium [place] 0.5 mg ONCE ONCE NEB 01/28/25 22:15 01/28/25 22:27 DC 01/28/25 22:19 Departure 1 Departure Time of Disposition: 00:10 Impression: Primary Impression: Cellulitis of left lower extremity Disposition: ADMITTED INPATIENT Condition: Fair Comments Patient will be admitted to this facility for further management of cellulitis and purulent draining wounds, and probable COPD exacerbation. Critical Care Note Critical Care Time?: No Stability Stability form required: MARTINEZ Martinez RESIDENT Jan 28, 2025 21:32
[2025-01-28] MEDS ORDERED: MORPHINE SULFATE INJ 2 MG/ml SYRG IV ONE (21:45)
[2025-01-28] MEDS: LEVALBUTEROL HCL 1.25 MG/3 ML NEB NEB ONE (22:19)
[2025-01-28] MEDS: IPRATROPIUM BROM 0.5 MG/2.5ML INH SOL NEB ONE (22:19)
[2025-01-28 22:25] LABS: Mean Corpuscular Hemoglobin 26.2 pg (28.0-32.0)
[2025-01-28 22:26] LABS: Hematocrit 36.1 % (36.0-46.0); Hemoglobin 11.9 g/dL (12.2-16.2); Mean Corpuscular Volume 79.3 fL (80.0-100.0); Nucleated Red Blood Cells % 0.1 %
[2025-01-28 22:37] LABS: Alanine Aminotransferase 18 U/L (7-40); Albumin 4.2 g/dL (3.2-4.8); Alkaline Phosphatase 97 U/L (46-116); Anion Gap 7 (5-15); BUN/Creatinine Ratio 15.4 (10.0-20.0); Blood Urea Nitrogen 16 mg/dL (9-23); Calcium 9.4 mg/dL (8.7-10.4); Carbon Dioxide 31 mmol/L (20-31); Chloride 102 mmol/L (98-107); Potassium 4.0 mmol/L (3.5-5.1); Sodium 140 mmol/L (136-145); Total Protein 8.2 g/dL (5.7-8.2)
[2025-01-28 22:43] LABS: Bilirubin, Total 0.2 mg/dL (0.2-1.0); Glucose 112 mg/dL (74-106)
--- NOTE | 2025-01-28 22:48 | DVH ---
INDICATION: prurulent draining wounds timmons, r/o nec fasc COMPARISON: CT LEFT LOWER EXTREMITY W/O CON on DOS: 11/08/23, US LT LOWER DVT on DOS: 11/08/23, XR TIB FIB LT on DOS: 11/30/22, CT LOWER EXT LEFT on DOS: 05/06/22, CV VENOUS DOPPLER LOW EXT LT on DOS: 04/07 TECHNIQUE: CT of the left lower extremity was performed without contrast. Volume transverse images we re obtained and reconstructed in multiple planes using bone and soft tissue algorithms. Radiation Dose Information: CT Dose: CTDI volume is 16.96 mGy. Dose-length product is 1252.38 mGy*cm FINDINGS: Severe generalized soft tissue edema throughout the left lower extremity with severe diffuse skin thi ckening. No focal fluid collection however. No subcutaneous soft tissue gas to suggest a necrotizing infection. Severe degenerative changes at the left knee with complete joint space loss, large osteophytes, and v arus angulation. No clear-cut erosive changes to suggest osteomyelitis. Moderate sized left knee joint effusion. IMPRESSION: Severe diffuse skin thickening and soft tissue edema presumably related to cellulitis elbow lymphatic obstruction or venous insufficiency could have a similar appearance. No organized abscess. No osteomyelitis. Severe degenerative changes at the left knee with joint effusion. All CT scans at this medical facility are performed using dose modulation techniques as appropriate t o a performed exam including the following: Automated exposure control was utilized; adjustment of th e MA and/or KV according to patient size; and use of iterative reconstruction technique.
--- NOTE | 2025-01-28 23:05 | DVH ---
CHEST RADIOGRAPH Indication: crackles, wheezing Technique: Single frontal view of the chest was obtained COMPARISON: XY CHEST PORTABLE on DOS: 12/05/24, XY CHEST PORTABLE on DOS: 11/10/23, CT CT ANGIO CHEST C ONTRAST on DOS: 11/08/23, XY CHEST XRAY 1 VIEW on DOS: 11/08/23, CHEST PORTABLE on DOS: 11/10/20 FINDINGS: Cardiac silhouette is enlarged. Diffuse prominence of the pulmonary vasculature and slight prominenc e of the interstitium with trace bilateral pleural effusions and mild bibasilar atelectasis/ consolid ation. IMPRESSION: Pulmonary edema with trace bilateral pleural effusions and mild bibasilar atelectasis.
[2025-01-29] VITALS (8 sets, daily range): BP systolic 114–136; BP diastolic 69–85; PULSE 87–109; RESP 18–22; TEMP 98.2–98.8; O2SAT 91–100
[2025-01-29] MEDS ORDERED: ACETAMINOPHEN 325 MG TAB PO PRN (01:15)
[2025-01-29] MEDS ORDERED: DOCUSATE SOD 100 MG CAP PO PRN (01:15)
[2025-01-29] MEDS ORDERED: MORPHINE SULFATE INJ 2 MG/ml SYRG IV PRN (01:15)
[2025-01-29] MEDS ORDERED: HYDROcodone-ACET 5/325MG TAB PO PRN (01:15)
[2025-01-29] MEDS ORDERED: TEMAZEPAM 15 MG CAP PO PRN (01:15)
--- NOTE | 2025-01-29 01:15 | DVHHP2 ---
Admitting Diagnosis: Left lower extremity cellulitis History of Present Illness 54 y/o female patient presents with c/o wound to left lower extremity. Patient reports associated pain and drainage from wound. While in the emergency department the patient was evaluated by the provider, As per provider: Labs, vital signs, and imagining monitored. Patient will be admitted for further evaluation and treatment. I discussed admission with the patient/family and is in agreement to treatment plan. Patient Family History: Alcoholism G8 FATHER Hypertension G8 MOTHER Allergies: Coded Allergies: Gabapentin (Verified Allergy, Unknown, 05/04/16) Ibuprofen (Verified Allergy, Unknown, 09/25/16) Home Meds Active Scripts Levofloxacin Hemihydrate (LEVAQUIN 500 MG) 500 Mg Tab, 1 TAB PO DAILY, #14 TAB Prov:ANNEMARIE GILLIS MD 11/11/23 Reported Medications Spironolactone (Spironolactone) 25 Mg Tab, 1 TAB PO BID 01/29/25 Alprazolam (Alprazolam) 1 Mg Tab, 1 TAB PO BIDPRN PRN 01/29/25 Furosemide (Furosemide) 40 Mg Tab, 1 TAB PO DAILY 01/29/25 Losartan Potassium (Losartan Potassium) 100 Mg Tab, 1 TAB PO DAILY 01/29/25 Hydromorphone Hcl (Dilaudid) 4 Mg Tab, 4 MG PO BID, TAB 11/08/23 Hydrocodone-Acetaminophen (Hydrocodone Bitartrate/AC 10-325 mg) 1 Tab Tab, 1 TAB PO Q4HPRN PRN for PAIN SCALE 1 THRU 6, TAB 11/08/23 Current Medications Current Medications Medications (Trade) Dose Ordered Sig/Elsa Route PRN Reason Start Time Stop Time Status Last Admin Vancomycin HCl 0 ml @ 0 mls/hr UD IV 01/28/25 21:30 Vancomycin HCl 250 ml @ 166.667 mls/hr Q2H IV 01/28/25 22:15 01/29/25 01:44 DC 01/29/25 03:58 Sodium Chloride (Saline Lock Ns) 10 ml Q8HR IV 01/29/25 06:00 01/29/25 14:48 Acetaminophen/ Hydrocodone Bitart ([place] 5/325MG Tab) 1 tab Q4HP PRN PO MODERATE PAIN (4-6 PAIN SCALE) 01/29/25 01:15 Temazepam (Restoril) 15 mg QHSP PRN PO FOR INSOMNIA 01/29/25 01:15 Ondansetron HCl (Zofran) 4 mg Q4HP PRN IV NAUSEA / VOMITING 01/29/25 01:15 01/29/25 13:27 Docusate Sodium (Colace Capsule) 100 mg BIDPRN PRN PO FOR CONSTIPATION 01/29/25 01:15 Enoxaparin Sodium (Lovenox) 40 mg DAILY SC 01/29/25 10:00 01/29/25 10:58 Acetaminophen (Tylenol Tablet) 650 mg Q6HP PRN PO PAIN SCALE 1-3 OR TEMP>100.4 01/29/25 01:15 Morphine Sulfate 2 mg Q4HPRN PRN IV SEVERE PAIN (7-10 PAIN SCALE) 01/29/25 01:15 01/29/25 02:02 DC Piperacillin Sod/ Tazobactam Sod 100 ml @ 25 mls/hr Q8HR IV 01/29/25 06:00 01/29/25 14:48 Hydromorphone HCl (Dilaudid Injection) 0.5 mg Q4HPRN PRN IV PAIN SCALE 7 THRU 10 01/29/25 02:00 01/29/25 13:27 Furosemide (Lasix Tablet) 40 mg DAILY PO 01/30/25 10:00 Spironolactone (Aldactone) 25 mg BID PO 01/29/25 22:00 Patient Own Medication 1 tab BIDPRN PRN PO ANXIETY 01/29/25 11:30 UNV Patient Own Medication 1 tab DAILY PO 01/30/25 10:00 UNV Ipratropium [place] (Atrovent Medneb) 0.5 mg Q4HPRN PRN NEB SHORTNESS OF BREATH 01/29/25 11:30 01/29/25 14:49 Albuterol (Ventolin Medneb) 1.25 mg Q4HPRN PRN NEB SHORTNESS OF BREATH 01/29/25 13:45 01/29/25 14:50 Alprazolam (Xanax Tablet) 1 mg BID PRN PO ANXIETY 01/29/25 14:45 Losartan Potassium (Cozaar Tablet) 100 mg DAILY PO 01/30/25 10:00 Vancomycin HCl 250 ml @ 200 mls/hr Q12H IV 01/29/25 18:00 01/29/25 18:37 Review of Systems Constitutional: denies chills, denies fever, denies malaise Eyes: denies eye pain, denies vision change ENT: denies ear pain, denies headache, denies nasal congestion, denies painful swallowing, denies voice change Cardiovascular: denies chest pain, denies edema, denies orthopnea, denies palpitations, denies paroxysmal nocturnal dyspnea Respiratory: denies cough, denies shortness of breath Gastrointestinal: denies constipation, denies diarrhea, denies nausea, denies vomiting Genitourinary: denies dysuria, denies frequent urination, denies urethral discharge Musculoskeletal: denies back pain, denies joint pain, denies muscle pain Skin: denies bruising, denies itching, denies rash Neurological: denies focal weakness, denies headache, denies sensory changes Psychiatric: denies anxiety, denies depression Endocrine: denies polydipsia, denies polyuria Hematologic/Lymphatic: denies easy bleeding, denies easy bruising, denies enlarged lymph nodes Allergic/Immunologic: denies allergy, denies hives Vital Signs Vital Signs Date Time Temp Pulse Resp B/P (MAP) Pulse Ox O2 Delivery O2 Flow Rate FiO2 01/29/25 17:39 Room Air* 0 21 01/29/25 17:39 01/29/25 17:00 98.2 104 20 94 98.2 Physical Exam General Appearance: alert, no distress HEENT: EOMI, PERRLA, normal external inspect of ears, no icterus, no nasal drainage Neck: no carotid bruit, no jugular venous distention (JVD), no lymphadenopathy Chest: normal thorax Respiratory: clear to auscultation, normal air movement Cardiovascular: regular rate and rhythm, no diastolic murmur, no jugular venous distention (JVD), no rub, no systolic murmur Abdominal: soft, no hepatomegaly, no mass, no splenomegaly, no tenderness Genitourinary: grossly normal external Musculoskeletal: no joint tenderness, no swelling Extremities: normal pulses, no calf tenderness, no clubbing, no cyanosis, no edema Skin: no bruising, no jaundice, no rash Neurological: alert, No focal deficit SEPSIS Sepsis Screen Date sepsis recognized/suspect: Jan 28, 2025 Time Sepsis recognized/suspect: 2021 Recent Procedure: No On Antibiotic Therapy: No Respiratory Rate >20: No Heart Rate >90: Yes Temp<36 C (96.8 F) or >38.3 C: No SBP <90 or MAP <65 mmHG: No New Acute Mental Status Change: No Is the patient on CPAP, BIPAP,: No Physician Orders Blood Culture (01/28/25 21:27) Initiate Sepsis Protocol (01/28/25 ) Vancomycin Per Pharmacy (01/28/25 21:30) Left Lower Extremity W/O Con (01/28/25 21:30) Cleanse Wound With Ns (01/28/25 21:49) Cleanse Wound W/ Sterile Gauze (01/28/25 21:49) Chest Xray 1 View (01/28/25 22:07) Bilat Lower Dvt (01/29/25 08:00) Admit (01/29/25 01:11) Code Status (01/29/25 01:11) 2 Gm Sodium Diet (01/29/25 Breakfast) Sodium Chloride Lock (Saline Lock Ns) (01/29/25 06:00) Hydrocodone-Acet 5/325mg Tab ([place] 5/32 (01/29/25 01:15) Temazepam (Restoril) (01/29/25 01:15) Ondansetron Hcl (Zofran) (01/29/25 01:15) Docusate Sodium Capsule (Colace Capsule) (01/29/25 01:15) Enoxaparin Sodium (Lovenox) (01/29/25 10:00) Complete Blood Count (01/30/25 04:00) Comprehensive Metabolic Panel (01/30/25 04:00) Condition: Stable (01/29/25 01:11) Acetaminophen Tablet (Tylenol Tablet) (01/29/25 01:15) Piperacillin-Tazob 3.375gm (Zosyn 3.375g (01/29/25 06:00) Hydromorphone Injection (Dilaudid Inject (01/29/25 02:00) Furosemide Tablet (Lasix Tablet) (01/30/25 10:00) Spironolactone (Aldactone) (01/29/25 22:00) Ipratropium Medneb (Atrovent Medneb) (01/29/25 11:30) * Meter Tester Primary Consult (01/29/25 ) Albuterol Medneb (Ventolin Medneb) (01/29/25 13:45) Alprazolam Tablet (Xanax Tablet) (01/29/25 14:45) Losartan Tablet (Cozaar Tablet) (01/30/25 10:00) Vancomycin 1gm/250ml Kit (01/29/25 18:00) Vancomycin Per Pharmacy Protoc (01/30/25 18:00) Vancomycin,Trough (01/30/25 17:00) Vital Signs Date Time Temp Pulse Resp B/P (MAP) Pulse Ox O2 Delivery O2 Flow Rate FiO2 01/29/25 17:39 Room Air* 0 21 01/29/25 17:39 01/29/25 17:00 98.2 104 20 131/85 (100) 94 98.2 01/29/25 15:00 108 22 129/63 (85) 94 01/29/25 14:06 89 18 100 01/29/25 14:00 87 18 98 01/29/25 14:00 98 Room Air 0.0 01/29/25 14:00 98 Room Air* 0 21 01/29/25 13:57 109 20 144/76 01/29/25 13:45 98.3 109 18 136/74 98 0.0 98.3 01/29/25 13:27 108 20 145/63 01/29/25 13:15 108 20 145/63 (90) 98 01/29/25 12:00 108 20 145/63 (90) 98 01/29/25 08:00 109 22 95 Room Air* 0 21 01/29/25 08:00 98.3 109 22 136/74 (94) 95 98.3 01/29/25 05:00 108 20 12/72 (52) 95 01/29/25 02:40 85 18 131/78 01/29/25 02:10 91 18 154/89 01/29/25 01:51 137/79 01/29/25 01:29 94 20 97 Nasal Cannula* 2 28 01/29/25 01:07 97.9 94 20 165/84 (111) 97 97.9 01/29/25 00:28 98.4 108 19 168/101 (123) 98 98.4 01/28/25 22:19 18 94 Room Air* 0 21 01/28/25 20:18 98.4 127 20 171/102 96 98.4 Laboratory Tests Test 01/28/25 22:01 01/28/25 23:27 White Blood Count 8.9 10^3/uL (4.4-10.8) Lactic Acid Level 0.7 mmol/L (0.4-2.0) Medications Medications Dose Ordered Sig/Elsa Route Start Time Stop Time Status Last Admin Dose Admin Albuterol 1.25 mg Q4HPRN PRN NEB 01/29/25 13:45 01/29/25 14:50 Enoxaparin Sodium 40 mg DAILY SC 01/29/25 10:00 01/29/25 10:58 Ipratropium [place] 0.5 mg Q4HPRN PRN NEB 01/29/25 11:30 01/29/25 14:49 Vancomycin HCl 250 ml @ 200 mls/hr Q12H IV 01/29/25 18:00 01/29/25 18:37 Results Labs Test 01/29/25 11:37 01/29/25 02:31 01/28/25 23:27 01/28/25 22:01 Range/Units Creatinine 1.19 H 0.550-1.02 mg/dL Glomerular Filtration Rate Calc 54 >90 mL/min Urine Color Light-yellow Yellow Urine Clarity Clear Clear Urine pH 6.0 5.0-9.0 Urine Specific [place] 1.017 1.001-1.035 Urine Protein Trace H Negative Urine Ketones Negative Negative Urine Blood Negative Negative /uL Urine Nitrite Negative Negative Urine Bilirubin Negative Negative Urine Urobilinogen Normal Negative mg/dL Urine Leukocyte Esterase Trace Negative /uL Urine RBC None seen 0 - 4 /hpf Urine Microscopic WBC 12 H 0-5 /HPF Urine Squamous Epithelial Cells Few <5 /hpf Urine Bacteria Few H None Seen /hpf Urine Glucose Normal Normal mg/dL Urine Opiates Screen Neg NEGATIVE Urine Fentanyl Screen Pos NEGATIVE Urine Barbiturates Screen Neg NEGATIVE Urine Phencyclidine Screen Neg NEGATIVE Urine Amphetamines Screen Pos NEGATIVE Urine Benzodiazepines Screen Pos NEGATIVE Urine Cocaine Screen Neg NEGATIVE Urine Cannabinoids Screen Neg NEGATIVE Lactic Acid Level 0.7 0.4-2.0 mmol/L White Blood Count 8.9 4.4-10.8 10^3/uL Red Blood Count 4.55 4.0-5.20 10^6/uL Hemoglobin 11.9 L 12.2-16.2 g/dL Hematocrit 36.1 36.0-46.0 % Mean Corpuscular Volume 79.3 L 80.0-100.0 fL Mean Corpuscular Hemoglobin 26.2 L 28.0-32.0 pg Mean Corpuscular Hemoglobin Concent 33.0 32.0-36.0 g/dL Red Cell Distribution Width 18.0 H 11.8-14.3 % Platelet Count 327 140-450 10^3/uL Mean Platelet Volume 7.3 6.9-10.8 fL Neutrophils (%) (Auto) 60.9 37.0-80.0 % Lymphocytes (%) (Auto) 28.2 10.0-50.0 % Monocytes (%) (Auto) 8.0 0.0-12.0 % Eosinophils (%) (Auto) 2.4 0.0-7.0 % Basophils (%) (Auto) 0.5 0.0-2.0 % Neutrophils # (Auto) 5.4 1.6-8.6 10 ^3/uL Lymphocytes # (Auto) 2.5 0.4-5.4 10 ^3/uL Monocytes # (Auto) 0.7 0-1.3 10 ^3/uL Eosinophils # (Auto) 0.2 0-0.8 10 ^3/uL Basophils # (Auto) 0 0-0.2 10 ^3/uL Nucleated Red Blood Cells 0.1 % Erythrocyte Sedimentation Rate 66 H 0-20 mm/hr Sodium Level 140 136-145 mmol/L Potassium Level 4.0 3.5-5.1 mmol/L Chloride Level 102 98-107 mmol/L Carbon Dioxide Level 31 20-31 mmol/L Anion Gap 7 5-15 Blood Urea Nitrogen 16 9-23 mg/dL BUN/Creatinine Ratio 15.4 10.0-20.0 Serum Glucose 112 H 74-106 mg/dL Calcium Level 9.4 8.7-10.4 mg/dL Total Bilirubin 0.2 0.2-1.0 mg/dL Aspartate Amino Transferase (AST) 17 13-40 U/L Alanine Aminotransferase (ALT) 18 7-40 U/L Alkaline Phosphatase 97 46-116 U/L Troponin I High Sensitivity < 3 L </=34 ng/L C-Reactive Protein High Sensitivity 3.15 H <1.0 mg/dL B-Type Natriuretic Peptide 14.42 0-100 pg/mL Total Protein 8.2 5.7-8.2 g/dL Albumin 4.2 3.2-4.8 g/dL Plasma/Serum Blood Alcohol < 3.0 <10 mg/dL Test 01/28/25 20:23 Range/Units POC Glucose 128 H 70-106 mg/dl Plan 1. COPD Monitor, PRN med-neb tx 2. Left lower extremity cellulitis Monitor, IV abx, PRN pain meds 3. Peripheral neuropathy Monitor 4. Obesity Monitor 5. Benign essential hypertension Monitor, antihypertensives, cardiac diet 6. Polysubstance abuse Monitor, social sciences instructor consult 7. Smoker Smoking cessation Plan discussed with: Patient, Other ESTEBAN PEARCE NP Jan 29, 2025 01:15
[2025-01-29] MEDS: CLINDAMYCIN 600MG IV 50 ML IV ONE (01:49)
[2025-01-29] MEDS: FUROSEMIDE 40 MG/4 ML VIAL IV ONE (01:51)
[2025-01-29] MEDS: HYDROmorphone HCL 2 MG/ML VL/or syr IV PRN (02:10)
[2025-01-29] MEDS: PIPERACILLIN-TAZOB 3.375GM 100 ML IV ONE (02:40)
[2025-01-29 03:09] LABS: Opiate Scree,Urine Neg (NEGATIVE)
[2025-01-29 03:27] LABS: Amphetamine Screen, Urine Pos (NEGATIVE); Barbiturate Scree,Urine Neg (NEGATIVE); Benzodiazephine Screen, Urine Pos (NEGATIVE); Cannabinoid Screen, Urine Neg (NEGATIVE); Cocaine Screen, Urine Neg (NEGATIVE); Phencyclidine Screen, Urine Neg (NEGATIVE)
[2025-01-29 03:30] LABS: Urine Protein, UAD TRACE (Negative)
[2025-01-29] MEDS: VANCOMYCIN 1GM/250ML KIT 250 ML IV SCH ×2 (03:58→18:37)
[2025-01-29] MEDS: VANCOMYCIN 1GM/250ML KIT 250 ML IV ONE (04:13)
[2025-01-29] MEDS: SODIUM CHLOR 0.9% PF (SALINE LOCK) 10ML VIAL/SYR IV SCH (06:06)
[2025-01-29] MEDS: PIPERACILLIN-TAZOB 3.375GM 100 ML IV SCH (06:25)
--- NOTE | 2025-01-29 08:08 | DVH ---
Bilateral lower extremity venous duplex Clinical History: r/o dvt, swelling Comparison: US BILAT LOWER DVT on DOS: 12/06/24, US LT LOWER DVT on DOS: 11/08/23, CV VENOUS DOPPLER EX TREM BILAT on DOS: 11/30/22, CV VENOUS DOPPLER LOW EXT LT on DOS: 04/07/22, BI LOWER DVT on DOS: Technique: Duplex Doppler evaluation of the deep venous systems of both lower extremities from the common femora l veins to the popliteal veins including color Doppler and spectral/pulsed waveform analysis was perf ormed. Findings: RIGHT SIDE: The common femoral vein demonstrates appropriate compressibility and waveform variability. There is compressibility/patency of the great saphenous vein at the proximal thigh. The femoral vein demonstrates appropriate compressibility and waveform variability. The deep femoral vein demonstrates appropriate compressibility and waveform variability. The popliteal vein demonstrates appropriate compressibility and waveform variability. There is normal compressibility at the tibioperoneal trunk. LEFT SIDE: The common femoral vein demonstrates appropriate compressibility and waveform variability. There is compressibility/patency of the great saphenous vein at the proximal thigh. The femoral vein demonstrates appropriate compressibility and waveform variability. The distal left l ower extremity superficial femoral vein is not well visualized due to body habitus. The deep femoral vein demonstrates appropriate compressibility and waveform variability. The popliteal vein demonstrates appropriate compressibility and waveform variability. There is normal compressibility at the tibioperoneal trunk. There is a small bagley's cyst in the right popliteal fossa measuring 3.5 cm. Large left knee joint effusion is visualized. There is suggestion of a Bagley's cyst in the left popliteal fossa measuring 5.7 cm. Nonspecific subcutaneous edema. Impression: No right or left femoropopliteal venous thrombosis. Evaluation is limited due to body habitus. There is a small bagley's cyst in the right popliteal fossa measuring 3.5 cm. Large left knee joint effusion is visualized. There is suggestion of a Bagley's cyst in the left popliteal fossa measuring 5.7 cm. Nonspecific subcutaneous edema.
[2025-01-29] MEDS: ENOXAPARIN SOD 40 MG/0.4 ML SYRINGE SC SCH (10:58)
[2025-01-29] MEDS ORDERED: FURO40TA4 PO (11:21)
[2025-01-29] MEDS ORDERED: SPIR25TA8 PO (11:21)
[2025-01-29] MEDS ORDERED: ALPR1TAB7 PO (11:21)
[2025-01-29] MEDS ORDERED: LOSA-535 PO (11:21)
[2025-01-29] MEDS ORDERED: PATIENTS OWN MEDICATION (Alprazolam 1 TAB) PO PRN (11:30)
[2025-01-29] MEDS: ONDANSETRON HCL 4 MG/2 ML VIAL IV PRN (13:27)
[2025-01-29] MEDS: IPRATROPIUM BROM 0.5 MG/2.5ML INH SOL NEB PRN (14:49)
[2025-01-29] MEDS: ALBUTEROL SULF 2.5 MG/0.5ML(0.5%) NEB SOLN NEB PRN (14:50)
[2025-01-29] MEDS: ALBUTEROL SULF 2.5 MG/0.5ML(0.5%) NEB SOLN ONE (15:23)
[2025-01-29] MEDS: IPRATROPIUM BROM 0.5 MG/2.5ML INH SOL ONE (15:23)
[2025-01-29] MEDS: SPIRONOLACTONE 25 MG TAB PO SCH (21:41)
[2025-01-30] VITALS (10 sets, daily range): BP systolic 108–138; BP diastolic 56–87; PULSE 91–113; RESP 17–20; TEMP 98–99.6; O2SAT 92–97
[2025-01-30 07:45] LABS: Hemoglobin 10.3 g/dL (12.2-16.2)
[2025-01-30 07:47] LABS: Hematocrit 32.0 % (36.0-46.0); Mean Corpuscular Hemoglobin 25.9 pg (28.0-32.0); Mean Corpuscular Volume 80.5 fL (80.0-100.0); Nucleated Red Blood Cells % 0.0 %
[2025-01-30 08:08] LABS: Alanine Aminotransferase 14 U/L (7-40); Albumin 3.5 g/dL (3.2-4.8); Alkaline Phosphatase 75 U/L (46-116); Anion Gap 9 (5-15); BUN/Creatinine Ratio 14.2 (10.0-20.0); Blood Urea Nitrogen 17 mg/dL (9-23); Calcium 8.5 mg/dL (8.7-10.4); Carbon Dioxide 30 mmol/L (20-31); Chloride 101 mmol/L (98-107); Glucose 172 mg/dL (74-106); Potassium 3.9 mmol/L (3.5-5.1); Sodium 140 mmol/L (136-145); Total Protein 6.8 g/dL (5.7-8.2)
[2025-01-30 08:10] LABS: Bilirubin, Total 0.2 mg/dL (0.2-1.0)
[2025-01-30] MEDS ORDERED: FUROSEMIDE 40 MG TAB PO SCH (10:00)
[2025-01-30] MEDS ORDERED: PATIENTS OWN MEDICATION (Losartan Potassium 1 TAB) PO SCH (10:00)
[2025-01-30] MEDS: MAGNESIUM CITRATE SOLUTION 300 ML BTL PO ONE (10:19)
[2025-01-30] MEDS: FUROSEMIDE 40 MG/4 ML VIAL IV SCH (10:20)
[2025-01-30] MEDS: LOSARTAN POTASSIUM 50 MG TAB PO SCH (10:21)
--- NOTE | 2025-01-30 10:49 | DVH ---
EXAM: CT LS SPINE WO CONTRAST HISTORY: incontinence COMPARISON: None CTDIvol 48.89 mGy, DLP 1625.41 mGy*cm. TECHNIQUE: Multiple axial CT images of the spine were obtained using bone algorithm. Axial and guerrero l reformatting was done. Bone and soft tissue windows were reviewed. FINDINGS: No evidence of definite acute fracture, spinal dislocation, or significant appearing acute subluxatio n is seen. Advanced degenerative changes of bilateral sacroiliac joints, [id number] (possible erosi ve osteoarthritis). Advanced multilevel degenerative changes of the spine with multilevel degenerative disc space narrowi ng, osteophyte formation and vacuum disc phenomenon. This is most severe at L4-L5 and L5-S1. Multilevel moderate to severe canal stenosis most severe at L3-L4. IMPRESSION: No definite CT evidence of acute fracture or dislocation of the bony lumbar spine.
--- NOTE | 2025-01-30 14:03 | DVH ---
CLINICAL HISTORY: headache severe TECHNIQUE: Helical scanning was performed of the head from the skull base to the vertex. Multiplanar reconstructions were performed. This exam was performed according to our departmental dose optimization program. Up-to-date CT equipment and radiation dose reduction techniques are utilized as appropriate. CTDI 68 DLP 1400 COMPARISON: CT HEAD WITHOUT CONTRAST on DOS: 11/08/23 FINDINGS: There is no evidence for acute intracranial hemorrhage, acute ischemic changes, mass, mass effect, or extra-axial fluid collection. There is no hydrocephalus or midline shift. There is no effacement of the cerebral sulci and basal subarachnoid cisterns. The smith-white matter differentiation is well maintained. The imaged paranasal sinuses are clear. IMPRESSION: NO ACUTE INTRACRANIAL ABNORMALITY SEEN. JENKINS
--- NOTE | 2025-01-30 17:41 | DVHPN2 ---
Progress Note - Dictate Date Seen: Jan 30, 2025 Medical Necessity Reason Pt with a Central, PICC or Fol: No vital signs Vital Sign Date Time Temp Pulse Resp B/P (MAP) Pulse Ox O2 Delivery O2 Flow Rate FiO2 01/30/25 17:00 99.6 113 20 125/59 (81) 95 99.6 01/30/25 10:30 Room Air 0.0 01/30/25 10:30 21 Total Intake and Output 01/29/25 01/29/25 01/30/25 15:00 23:00 07:00 Intake Total 100 ml 275 ml 1060 ml Balance 100 ml 275 ml 1060 ml medications Current Medications Medications Dose Ordered Sig/Elsa Route Start Time Stop Time Status Last Admin Dose Admin Vancomycin HCl 0 ml @ 0 mls/hr UD IV 01/28/25 21:30 Sodium Chloride 10 ml Q8HR IV 01/29/25 06:00 01/30/25 14:00 10 ML Acetaminophen/ Hydrocodone Bitart 1 tab Q4HP PRN PO 01/29/25 01:15 Temazepam 15 mg QHSP PRN PO 01/29/25 01:15 Ondansetron HCl 4 mg Q4HP PRN IV 01/29/25 01:15 01/29/25 13:27 4 MG Docusate Sodium 100 mg BIDPRN PRN PO 01/29/25 01:15 Enoxaparin Sodium 40 mg DAILY SC 01/29/25 10:00 01/30/25 10:21 40 MG Acetaminophen 650 mg Q6HP PRN PO 01/29/25 01:15 Piperacillin Sod/ Tazobactam Sod 100 ml @ 25 mls/hr Q8HR IV 01/29/25 06:00 01/30/25 14:00 25 MLS/HR Spironolactone 25 mg BID PO 01/29/25 22:00 01/30/25 10:20 25 MG Patient Own Medication 1 tab BIDPRN PRN PO 01/29/25 11:30 UNV Patient Own Medication 1 tab DAILY PO 01/30/25 10:00 UNV Ipratropium [place] 0.5 mg Q4HPRN PRN NEB 01/29/25 11:30 01/29/25 14:49 0.5 MG Albuterol 1.25 mg Q4HPRN PRN NEB 01/29/25 13:45 01/29/25 14:50 1.25 MG Alprazolam 1 mg BID PRN PO 01/29/25 14:45 Losartan Potassium 100 mg DAILY PO 01/30/25 10:00 01/30/25 10:21 100 MG Vancomycin HCl 250 ml @ 200 mls/hr Q12H IV 01/29/25 18:00 01/30/25 06:48 200 MLS/HR Hydromorphone HCl 1 mg Q4HPRN PRN IV 01/30/25 08:45 Furosemide 40 mg BIDD IV 01/30/25 08:45 01/30/25 10:20 40 MG objective General Appearance: alert, no distress HEENT: EOMI, PERRLA, normal external inspect of ears, no icterus, no nasal drainage Neck: no carotid bruit, no jugular venous distention (JVD), no lymphadenopathy Chest: normal thorax Respiratory: clear to auscultation, normal air movement Cardiovascular: regular rate and rhythm, no diastolic murmur, no jugular venous distention (JVD), no rub, no systolic murmur Abdominal: soft, no hepatomegaly, no mass, no splenomegaly, no tenderness Musculoskeletal: no joint tenderness, no swelling Extremities: normal pulses, no calf tenderness, no clubbing, no cyanosis, no edema Skin: no bruising, no jaundice, no rash Neurological: alert, No focal deficit laboratory and microbiology Laboratory Tests 01/30/25 06:49 Test 01/30/25 06:49 Range/Units Serum Glucose 172 H 74-106 mg/dL Problem List 1. COPD Monitor, PRN med-neb tx 2. Left lower extremity cellulitis Monitor, IV abx, PRN pain meds 3. Peripheral neuropathy Monitor 4. Obesity Monitor 5. Benign essential hypertension Monitor, antihypertensives, cardiac diet 6. Polysubstance abuse Monitor, social work specialist consult 7. Smoker Smoking cessation Assessment/Plan Subjective Patient is awake and alert. Objective Patient was admitted for swelling and pain to her left lower extremity. Patient found to have left lower extremity cellulitis. Patient states she is on diuretics at home. Oral Lasix was changed to IV Lasix. Patient states pain medication does not last very long for her. Replace electrolytes as needed. Patient stating she is having severe headaches. And states she has been recently incontinent of stool and urine. Plan Continue antibiotics for cellulitis. Change Lasix to IV. Continue Aldactone. Increase Dilaudid to [address] of the head. CT of L-spine. Plan discussed with: Patient, Other ESTEBAN PEARCE NP Jan 30, 2025 17:41
[2025-01-30] MEDS: HYDROmorphone HCL 2 MG/ML VL/or syr IV PRN (17:58)
[2025-01-31] VITALS (10 sets, daily range): BP systolic 103–143; BP diastolic 59–80; PULSE 85–94; RESP 17–20; TEMP 97.8–98.5; O2SAT 93–96
[2025-01-31] MEDS: VANCOMYCIN 750MG KIT 100 ML IV SCH (06:00)
--- NOTE | 2025-01-31 14:15 | DVHPN2 ---
Progress Note - Dictate Date Seen: Jan 31, 2025 Medical Necessity Reason Pt with a Central, PICC or Fol: No vital signs Vital Sign Date Time Temp Pulse Resp B/P (MAP) Pulse Ox O2 Delivery O2 Flow Rate FiO2 01/31/25 13:57 98.4 88 18 143/75 (97) 94 98.4 01/31/25 08:07 Room Air* 0 21 Total Intake and Output 01/30/25 01/30/25 01/31/25 15:00 23:00 07:00 Intake Total 350 ml 938 ml 810 ml Output Total 620 ml Balance 350 ml 938 ml 190 ml medications Current Medications Medications Dose Ordered Sig/Elsa Route Start Time Stop Time Status Last Admin Dose Admin Vancomycin HCl 0 ml @ 0 mls/hr UD IV 01/28/25 21:30 Sodium Chloride 10 ml Q8HR IV 01/29/25 06:00 01/31/25 05:40 10 ML Acetaminophen/ Hydrocodone Bitart 1 tab Q4HP PRN PO 01/29/25 01:15 Temazepam 15 mg QHSP PRN PO 01/29/25 01:15 Ondansetron HCl 4 mg Q4HP PRN IV 01/29/25 01:15 01/29/25 13:27 4 MG Docusate Sodium 100 mg BIDPRN PRN PO 01/29/25 01:15 Enoxaparin Sodium 40 mg DAILY SC 01/29/25 10:00 01/31/25 10:35 40 MG Acetaminophen 650 mg Q6HP PRN PO 01/29/25 01:15 Piperacillin Sod/ Tazobactam Sod 100 ml @ 25 mls/hr Q8HR IV 01/29/25 06:00 01/31/25 05:40 25 MLS/HR Patient Own Medication 1 tab BIDPRN PRN PO 01/29/25 11:30 UNV Patient Own Medication 1 tab DAILY PO 01/30/25 10:00 UNV Ipratropium [place] 0.5 mg Q4HPRN PRN NEB 01/29/25 11:30 01/29/25 14:49 0.5 MG Albuterol 1.25 mg Q4HPRN PRN NEB 01/29/25 13:45 01/29/25 14:50 1.25 MG Alprazolam 1 mg BID PRN PO 01/29/25 14:45 Losartan Potassium 100 mg DAILY PO 01/30/25 10:00 01/31/25 10:36 100 MG Vancomycin HCl 250 ml @ 200 mls/hr Q12H IV 01/29/25 18:00 01/30/25 17:45 200 MLS/HR Hydromorphone HCl 1 mg Q4HPRN PRN IV 01/30/25 08:45 01/31/25 10:42 1 MG Vancomycin HCl 100 ml @ 100 mls/hr Q12H IV 01/31/25 06:00 01/31/25 06:00 100 MLS/HR objective General Appearance: alert, no distress HEENT: EOMI, PERRLA, normal external inspect of ears, no icterus, no nasal drainage Neck: no carotid bruit, no jugular venous distention (JVD), no lymphadenopathy Chest: normal thorax Respiratory: clear to auscultation, normal air movement Cardiovascular: regular rate and rhythm, no diastolic murmur, no jugular venous distention (JVD), no rub, no systolic murmur Abdominal: soft, no hepatomegaly, no mass, no splenomegaly, no tenderness Musculoskeletal: no joint tenderness, no swelling Extremities: normal pulses, no calf tenderness, no clubbing, no cyanosis, no edema Skin: no bruising, no jaundice, no rash Neurological: alert, No focal deficit laboratory and microbiology Laboratory Tests 01/31/25 06:41 01/30/25 06:49 Test 01/30/25 06:49 Range/Units Serum Glucose 172 H 74-106 mg/dL Problem List 1. COPD Monitor, PRN med-neb tx 2. Left lower extremity cellulitis Monitor, IV abx, PRN pain meds 3. Peripheral neuropathy Monitor 4. Obesity Monitor 5. Benign essential hypertension Monitor, antihypertensives, cardiac diet 6. Polysubstance abuse Monitor, social human services assistants consult 7. Smoker Smoking cessation Assessment/Plan Subjective Patient is awake and alert. Objective Diuretics were discontinued patient's BNP within normal limits. Patient has lymphedema to left lower extremity. She states she was told this in the past. Patient has slight worsening kidney function. Patient encouraged to drink when thirsty. Will repeat labs in a.m. Plan Continue antibiotics. Patient will likely have psoriasis. DC planning for tomorrow. Plan discussed with: Patient, Other ESTEBAN PEARCE NP Jan 31, 2025 14:15
[2025-01-31] MEDS: ALPRAZolam 0.5 MG TAB PO PRN (17:30)
[2025-02-01] VITALS (7 sets, daily range): BP systolic 111–134; BP diastolic 62–93; PULSE 91–96; RESP 17–19; TEMP 97.7–98.9; O2SAT 92–98
[2025-02-01 05:42] LABS: Nucleated Red Blood Cells % 0.1 %
[2025-02-01 05:44] LABS: Hematocrit 34.2 % (36.0-46.0); Hemoglobin 11.3 g/dL (12.2-16.2); Mean Corpuscular Hemoglobin 26.7 pg (28.0-32.0); Mean Corpuscular Volume 81.0 fL (80.0-100.0)
[2025-02-01 05:52] LABS: Chloride 99 mmol/L (98-107); Potassium 4.0 mmol/L (3.5-5.1); Sodium 137 mmol/L (136-145)
[2025-02-01 05:53] LABS: Anion Gap 9 (5-15); Calcium 9.2 mg/dL (8.7-10.4); Carbon Dioxide 29 mmol/L (20-31)
[2025-02-01 05:58] LABS: BUN/Creatinine Ratio 15.1 (10.0-20.0); Blood Urea Nitrogen 19 mg/dL (9-23)
[2025-02-01 06:09] LABS: Glucose 189 mg/dL (74-106)
[2025-02-01] MEDS: VANCOMYCIN 750MG KIT 100 ML IV SCH (10:00)
[2025-02-01] MEDS: PIPERACILLIN-TAZOB 3.375GM 100 ML IV SCH (11:00)
--- NOTE | 2025-02-01 13:30 | DVHDS2 ---
Discharge Summary Date of Admission Jan 29, 2025 at 01:11 Date of Discharge: Feb 01, 2025 Labs/Diagnostic Data: Laboratory Results Test 02/01/25 04:57 01/30/25 17:20 01/30/25 06:49 01/29/25 02:31 White Blood Count 6.0 10^3/uL (4.4-10.8) Red Blood Count 4.22 10^6/uL (4.0-5.20) Hemoglobin 11.3 g/dL (12.2-16.2) Hematocrit 34.2 % (36.0-46.0) Mean Corpuscular Volume 81.0 fL (80.0-100.0) Mean Corpuscular Hemoglobin 26.7 pg (28.0-32.0) Mean Corpuscular Hemoglobin Concent 33.0 g/dL (32.0-36.0) Red Cell Distribution Width 18.0 % (11.8-14.3) Platelet Count 292 10^3/uL (140-450) Mean Platelet Volume 7.5 fL (6.9-10.8) Neutrophils (%) (Auto) 58.1 % (37.0-80.0) Lymphocytes (%) (Auto) 23.3 % (10.0-50.0) Monocytes (%) (Auto) 13.6 % (0.0-12.0) Eosinophils (%) (Auto) 4.4 % (0.0-7.0) Basophils (%) (Auto) 0.6 % (0.0-2.0) Neutrophils # (Auto) 3.5 10 ^3/uL (1.6-8.6) Lymphocytes # (Auto) 1.4 10 ^3/uL (0.4-5.4) Monocytes # (Auto) 0.8 10 ^3/uL (0-1.3) Eosinophils # (Auto) 0.3 10 ^3/uL (0-0.8) Basophils # (Auto) 0 10 ^3/uL (0-0.2) Nucleated Red Blood Cells 0.1 % Sodium Level 137 mmol/L (136-145) Potassium Level 4.0 mmol/L (3.5-5.1) Chloride Level 99 mmol/L (98-107) Carbon Dioxide Level 29 mmol/L (20-31) Anion Gap 9 (5-15) Blood Urea Nitrogen 19 mg/dL (9-23) Creatinine 1.26 mg/dL (0.550-1.02) Glomerular Filtration Rate Calc 51 mL/min (>90) BUN/Creatinine Ratio 15.1 (10.0-20.0) Serum Glucose 189 mg/dL (74-106) Calcium Level 9.2 mg/dL (8.7-10.4) Vancomycin Level Trough 16.7 ug/mL (5-10) Total Bilirubin 0.2 mg/dL (0.2-1.0) Aspartate Amino Transferase (AST) 21 U/L (13-40) Alanine Aminotransferase (ALT) 14 U/L (7-40) Alkaline Phosphatase 75 U/L (46-116) Total Protein 6.8 g/dL (5.7-8.2) Albumin 3.5 g/dL (3.2-4.8) Urine Color Light-yellow (Yellow) Urine Clarity Clear (Clear) Urine pH 6.0 (5.0-9.0) Urine Specific [place] 1.017 (1.001-1.035) Urine Protein Trace (Negative) Urine Ketones Negative (Negative) Urine Blood Negative /uL (Negative) Urine Nitrite Negative (Negative) Urine Bilirubin Negative (Negative) Urine Urobilinogen Normal mg/dL (Negative) Urine Leukocyte Esterase Trace /uL (Negative) Urine RBC None seen /hpf (0 - 4) Urine Microscopic WBC 12 /HPF (0-5) Urine Squamous Epithelial Cells Few /hpf (<5) Urine Bacteria Few /hpf (None Seen) Urine Glucose Normal mg/dL (Normal) Urine Opiates Screen Neg (NEGATIVE) Urine Fentanyl Screen Pos (NEGATIVE) Urine Barbiturates Screen Neg (NEGATIVE) Urine Phencyclidine Screen Neg (NEGATIVE) Urine Amphetamines Screen Pos (NEGATIVE) Urine Benzodiazepines Screen Pos (NEGATIVE) Urine Cocaine Screen Neg (NEGATIVE) Urine Cannabinoids Screen Neg (NEGATIVE) Test 01/28/25 23:27 01/28/25 22:01 01/28/25 20:23 Lactic Acid Level 0.7 mmol/L (0.4-2.0) Erythrocyte Sedimentation Rate 66 mm/hr (0-20) Troponin I High Sensitivity < 3 ng/L (</=34) C-Reactive Protein High Sensitivity 3.15 mg/dL (<1.0) B-Type Natriuretic Peptide 14.42 pg/mL (0-100) Plasma/Serum Blood Alcohol < 3.0 mg/dL (<10) POC Glucose 128 mg/dl (70-106) Other Laboratory Tests 02/01/25 04:57 Brief Hx & Hospital Course: 54 y/o female patient presents with c/o wound to left lower extremity. Patient reports associated pain and drainage from wound. Patient was admitted on January 31 for complaints of left lower leg swelling with cellulitis. Patient was given IV antibiotics. Patient had complaints of headache and lower back pain with incontinence. CT of the head showed no acute findings. CT of L-spine showed severe moderate to severe lumbar stenosis. I did inform patient she will need to follow-up with her PCP for a referral for orthopedic spinal surgeon. Patient is currently wheelchair-bound and she uses an electric scooter for several days. On assessment most likely patient has psoriasis to her lower extremities. Same skin pattern noted to her bilateral elbow area. Patient's BMP within normal limits. Diuretic discontinued in the hospital. Patient states she has been told in the past she has lymphedema. I did instruct her to follow-up with her PCP in 1 week. There were no complaints or new complaints upon discharge, all questions and concerns were answered. Patient was advised to return to the ER or call 911 if any headaches, dizziness, shortness of breath, chest pain, bleeding, fevers, or worsening of medical condition. Patient/Family was counseled about treatment plan, medications, possible side effects, patient verbalized understanding. All questions were answered to the best of my ability. The patient symptoms improved and they are okay to be DC. Condition at Discharge: Stable Final Diagnosis/Problems List Lynphedemia Psoriasis Discharge Disposition: Home Discharge Instruct/Medications Diet: Cardiac 2g Na,low cholest Activity: No Restrictions, As Tolerated Follow Up/Referral: pcp 1 week outpatient rhematology/dermatology Scheduled Furosemide (Furosemide), 1 TAB PO DAILY, (Reported) Hydromorphone Hcl (Dilaudid), 4 MG PO BID, (Reported) Losartan Potassium (Losartan Potassium), 1 TAB PO DAILY, (Reported) Spironolactone (Spironolactone), 1 TAB PO BID, (Reported) Scheduled PRN Alprazolam (Alprazolam), 1 TAB PO BIDPRN PRN, (Reported) Hydrocodone-Acetaminophen (Hydrocodone Bitartrate/AC 10-325 mg), 1 TAB PO Q4HPRN PRN for PAIN SCALE 1 THRU 6, (Reported) Discontinued Medications Levofloxacin Hemihydrate (Levaquin 500 Mg), 1 TAB PO DAILY Discharge Statement: "Patient was advised to return to the ER or call 911 if any headaches, dizziness, shortness of breath, chest pain, abdominal pain, bleeding, fevers, or worsening of medical condition. Patient was counseled about treatment plan, medications, possible side effects, patientverbalized understanding. All questions were answered to the best of my ability. This discharge took greater then 30 minutes in planning, reviewing documentation, counseling the patient, and discussing with other team members." ASSESSMENT ASSESSMENT Assessment Lynphedemia Psoriasis ESTEBAN PEARCE NP Feb 01, 2025 13:30
== END 2025-02-01 14:11 | disposition home or self-care (01) | DRG 383 ==
LOC: ER 20:09 → OVERFLOW 01-29 01:11 → CENTRAL 01-29 16:12
PROVIDERS: ADMIT Nurse Practitioner; ATTEND Nurse Practitioner
DX: L03.116 Cellulitis of left lower limb (principal); I11.0 Hypertensive heart disease with heart failure; I50.9 Heart failure, unspecified; E66.9 Obesity, unspecified; F17.210 Nicotine dependence, cigarettes, uncomplicated; G62.9 Polyneuropathy, unspecified; J44.9 Chronic obstructive pulmonary disease, unspecified; L40.9 Psoriasis, unspecified; M48.061 Spinal stenosis, lumbar region without neurogenic claudication; I89.0 Lymphedema, not elsewhere classified; Z88.6 Allergy status to analgesic agent; Z88.8 Allergy status to other drugs, medicaments and biological substances; Z82.49 Family history of ischemic heart disease and other diseases of the circulatory system; Z81.1 Family history of alcohol abuse and dependence; Z99.3 Dependence on wheelchair; Z90.710 Acquired absence of both cervix and uterus; Z90.49 Acquired absence of other specified parts of digestive tract; Z68.41 Body mass index [BMI] 40.0-44.9, adult
CPT/HCPCS: 36415; 70450; 71045; 72131; 73700; 80048; 80053; 80202; 80307; 80320; 81001; 82565; 85025; 93970; 94640; G0378; J2405; J2543; J3490